=== PATIENT | male | born 1940 | race Caucasian/White ===

== ENCOUNTER → 2017-01-13 | Outpatient (CLI) | payer OTHER, BC ==
[~2017-01-13] MED LIST: ALLO300T2 PO; ATEN50TA PO; ATOR-54 PO; COEN100C7 PO; FRS/80 PO; LANS30CA63 PO; LEVO88TA PO; LOSA1TAB38 PO; MCRK20 PO; NITR0.4S UT; OMEG12006 PO; OXYC-643 PO; WARF1TAB PO; WARF2TAB PO
--- NOTE | 2017-01-13 17:00 | DIAGNOSTIC IMAGING REPORT ---
TWO VIEW CHEST CLINICAL HISTORY: Dyspnea. Lung cancer. FINDINGS: PA and lateral chest radiographs are compared to study dated 03/28/2016. A left subclavian central venous infusion port is in place. There is a moderate hiatal hernia. The cardiomediastinal silhouette is unremarkable. Heart appears enlarged and there is atherosclerotic calcification of the thoracic aorta. The pulmonary vasculature is noncongested. Emphysema is identified. Scarring and opacities at the left lung base are similar to previous. Foci of scarring the right lung are also unchanged. There is no evidence of superimposed pneumonia. Pleural fluid is noted at the left lung base. There is no pneumothorax. The skeletal structures are osteopenic. Degenerative change is seen throughout the thoracic spine. Postoperative change is suggested in the left sided ribs. IMPRESSION: 1. No acute cardiopulmonary abnormality. 2. Cardiomegaly, emphysema, and hiatal hernia. 3. Chronic changes/scarring/opacities with possible postoperative change is again seen in the left lung base. Correlation with the patient's medical/surgical history will be required. Electronically signed by: Luis Manuel Quintanilla M.D. 01/13/2017 4:59 PM Dictated Date/Time: 01/13/2017 4:56 PM
== END | disposition home or self-care (01) ==
LOC: C.RAD1850 16:46
PROVIDERS: ATTEND Nurse Practitioner Family
DX: Z79.01 Long term (current) use of anticoagulants (principal); R09.89 Other specified symptoms and signs involving the circulatory and respiratory systems; C34.90 Malignant neoplasm of unspecified part of unspecified bronchus or lung; I51.7 Cardiomegaly

== ENCOUNTER 2018-05-31 13:47 | Observation (INO) ==
[2018-05-31 15:26] LABS: Basophils # (auto) 0.03 K/uL (0-0.2); Basophils % (auto) 0.4 %; Eosinophils # (auto) 0.17 K/uL (0-0.5); Eosinophils % (auto) 2.5 %; Hematocrit (blood only) 44.3 % (42-52); Hemoglobin 15.3 g/dL (14.0-18.0); Immature Granulocytes # (auto) 0.03 K/uL (0.00-0.02); Immature Granulocytes % (auto) 0.4 %; Lymphocytes # (auto) 1.68 K/uL (1.2-3.4); Lymphocytes % (auto) 25.1 %; Mean Corpuscular Hgb Conc 34.5 g/dL (32-36); Mean Corpuscular Volume 88.8 fL (80-100); Mean Platelet Volume 9.9 fL (7.4-10.4); Monocytes % (auto) 7.5 %; Neutrophils # (auto) 4.29 K/uL (1.4-6.5); Neutrophils % (auto) 64.1 %; Platelet Count 144 K/uL (130-400); RDW Coefficient of Variation 15.2 % (11.5-14.5); RDW Standard Deviation 49.3 fL (36.4-46.3); Red Blood Count 4.99 M/uL (4.7-6.1)
[2018-05-31] MEDS ORDERED: SODIUM CHLORIDE 0.9% 1000ML 1,000 ML IV SCH (15:30)
[2018-05-31 15:38] LABS: INR 2.7 (0.9-1.1); Partial Thromboplastin Ratio 1.4; Partial Thromboplastin Time 35.9 Seconds (21.0-31.0); Prothrombin Time 26.1 Seconds (9.0-12.0)
[2018-05-31 15:39] LABS: BUN Creatinine Ratio 16.5 (10-20); Blood Urea Nitrogen 26 mg/dl (7-18); Calcium 9.4 mg/dl (8.5-10.1); Carbon Dioxide 31 mmol/L (21-32); Chloride 101 mmol/L (98-107); Creatinine Clr Calc Pharmacy 43.3 ml/min; Est GFR (African American) 48.9; Est GFR (Non-African American) 42.2; Glucose 101 mg/dl (70-99); Potassium 3.1 mmol/L (3.5-5.1); Sodium 139 mmol/L (136-145)
--- NOTE | 2018-05-31 15:43 | XRay Report ---
XR chest 1V portable CLINICAL HISTORY: stroke COMPARISON STUDY: 12/30/2017 FINDINGS: The cardiac and mediastinal contours remain stable. As a left-sided A-Port catheter present . There is a retrocardiac opacity suggestive a hiatal hernia. There is indistinctness of the left hea rt border left hemidiaphragm unchanged the prior study. There are postsurgical changes of a partial r esection of the left sixth rib.[ IMPRESSION: Postsurgical changes within the left hemithorax with chronic pleural-parenchymal changes at the left lung base. No acute findings Electronically signed by: Son Shen M.D. 05/31/2018 3:42 PM
[2018-05-31 15:44] LABS: Troponin I < 0.015 ng/ml (0-0.045)
--- NOTE | 2018-05-31 16:00 | CT Scan Report ---
CT head/brain wo con CLINICAL HISTORY: 78 years-old Male with Stroke evaluation . Acute strokelike symptoms with weakness TECHNIQUE: Multiple axial CT images of the head were obtained without contrast. A dose lowering tech nique was utilized adhering to the principles of ALARA. CT DOSE: 614.27 mGy.cm COMPARISON: CT of the sinuses 03/09/2012. FINDINGS: No acute intracranial hemorrhage, midline shift, intracranial mass, hydrocephalus, territorial ischem ia or abnormal extra-axial collection. Age-related involutional changes. Scattered ill-defined hypode nsities about the white matter suggestive of chronic microvascular ischemic changes. Senescent calcif ications of the lentiform nuclei. Cerebral vascular calcifications noted. The calvarium is intact. The paranasal sinuses, mastoid air cells, and middle ear cavities are clear . IMPRESSION: No acute intracranial abnormality. The above report was generated using voice recognition software. It may contain grammatical, syntax o r spelling errors. Electronically signed by: Vitaliy De La Paz M.D. 05/31/2018 3:59 PM
--- NOTE | 2018-05-31 17:10 | Emergency Department Note ---
Entered by Bibi Rios acting as a scribe for Luis Manuel Quintana MD History of Present Illness General Chief complaint: Stroke/CVA Symptoms Stated complaint: ACUTE BRANCH RETINLA ARTERY ACCLUSTION Time Seen by Provider: 05/31/18 15:05 Source: patient History of Present Illness Onset (ago): day(s) 2 Location: eyes Pain Consistency: + other (episode) Quality: + other (stroke) Associated symptoms: + denies other symptoms (congestion) and + other (fuzzy vision, loss of vision, intermittent neck pain); no cough and no headaches The patient is a 78 year old male who presents to the Emergency Room with complaints of an episode of a stroke occurring 2 days ago. The patient states that 2 days ago he was walking through the [place] around [place] house to [place] trees to be cut down when he started to feel like something was in his left eye. He states that he kept rubbing his eye as his vision is fuzzy, but there was nothing there. He reports as the feeling persisted, he could no longer see out of the top part of his eye as it just went moyer. He reports it was like a blind was pulled down retirement. The patient states that his symptoms didnt improve so he went to an eye doctor today who then sent him to a retina specialist. He states that they dilated his eyes and sent him to the ED because they found an acute branch retinal artery occlusion. He states that he was sent here for a stroke work up. The patient complains of a sharp pain intermittently in his neck, but notes that he has had that since he was being treated for cancer. The patient notes that he has a history of a atrial fibrillation. He reports that he was on Atenolol, but was recently switched to Metoprolol. He reports that he is on Coumadin as well. The patient denies a history of stroke , cough, congestion, and headache. Home Medications Home Medications Medication Instructions Recorded Confirmed Type allopurinol 300 mg PO QAM 05/31/18 05/31/18 History atenolol 20 mg PO HS 05/31/18 05/31/18 History coenzyme Q10 [CoQ-10] 100 mg PO QAM 05/31/18 05/31/18 History furosemide 40 mg PO BID 05/31/18 05/31/18 History lansoprazole [Prevacid] 30 mg PO DAILY PRN 05/31/18 05/31/18 History levothyroxine 100 mcg PO QAM 05/31/18 05/31/18 History losartan-hydrochlorothiazide 1 tab PO QAM 05/31/18 05/31/18 History metoprolol succinate 50 mg PO HS 05/31/18 05/31/18 History nitroglycerin 0.4 mg SUBLINGUAL UD 05/31/18 05/31/18 History omega 2-muh-tcn-fish oil [Fish Oil] 1 cap PO QAM 05/31/18 05/31/18 History potassium chloride [Klor-Con M20] 20 meq PO QAM 05/31/18 05/31/18 History warfarin 2 mg PO 3XWK 05/31/18 05/31/18 History warfarin 3 mg PO 4XWK 05/31/18 05/31/18 History Allergies Allergy/AdvReac Type Severity Reaction Status Date / Time enoxaparin Allergy Intermediate swelling Verified 05/31/18 14:52 Iodinated Contrast- Oral and Allergy Intermediate "SWELLED Verified 05/31/18 14: 52 IV Dye UP" Penicillins Allergy Unknown RASH, Verified 05/31/18 14:52 THROAT SWELLING Past Med/Surg History Medical History Atrial fibrillation CKD (chronic kidney disease) Essential hypertension Gout History of cancer of head or neck Hypothyroidism Lung cancer Skin cancer Throat cancer Surgical History H/O thyroidectomy Family History Other Family history non-contributory Social History marital status: Current Living Situation: Alone current occupational status: retired Other Information That Helps Us Care for You: No Feels Safe at Home: Yes Safety Concerns: Feels Safe At This Time Smoking Status: Never smoker Do You Dip or Chew Tobacco: No Second Hand Exposure: No Tobacco Cessation Education Requested by Patient: No Hx Alcohol Use: No Hx Substance Use: No Beliefs That Will Affect Care: None Preferred Language: Telugu Communication Ability: Effective Pan Devulcanizer Required: No Review of Systems See HPI for pertinent positives & negatives. and A total of 10 systems reviewed and were otherwise negative Physical Exam Vital Signs Vital Signs - 24 hr 05/31/18 13:50 05/31/18 15:59 05/31/18 18:12 Temperature 36.4 C L Temperature Source Oral Sepsis Recent Fever Within 48 Hours No Sepsis New/Unexplained Change in Mental Status No Sepsis Action Taken by Nursing No Action Required Pulse Rate 70 Pulse Rate [Right Finger] 71 63 Pulse Rhythm Regular Pulse Strength Normal Respiratory Rate 20 18 18 Respiratory Effort / Characteristics Non-Labored Spontaneous Respiratory Depth Normal Respiratory Pattern Regular Blood Pressure 180/100 H Blood Pressure [Right Arm] 152/79 H 146/86 H Blood Pressure Mean 126 Blood Pressure Mean [Right Arm] 103 106 Blood Pressure Position Sitting Pulse Oximetry 97 98 96 Oxygen Delivery Method Room Air Room Air Room Air GENERAL: Patient is in no acute distress. HEENT: No acute trauma, normocephalic atraumatic, mucous membranes moist, no nasal congestion, no scleral icterus. The patient has no visible vessels to the lateral aspect of the left fundus. NECK: No stridor, no adenopathy, no meningismus, trachea is midline. No bruits. LUNGS: Clear to auscultation bilaterally, no wheeze, no rhonchi, breath sounds equal. HEART: Without murmurs gallops or rubs, regular rate and rhythm. ABDOMEN: Soft, nontender, bowel sounds positive, no hernias, no peritonitis. EXTREMITIES: No cyanosis or edema, full range of motion of all the joints without pain or difficulty, no signs for acute trauma. NEUROLOGIC: Oriented x 3, no acute motor or sensory deficits, no focal weakness. No speech slur or facial droop. No pronator drift. SKIN: No rash, no jaundice, no diaphoresis. Course 1508: Past medical records reviewed. The patient was evaluated in room B12A, and a complete history and physical examination were performed. 1623: I reevaluated the patient and updated him and his family on his test results. I discussed the treatment plan with them. They verbally agree and understand. 1626: I reviewed the patient's case with Dr. Titi CORREA Hospitalist. He will evaluate the patient for further management. Consultations Consultation #1: I reviewed the patient's case with Dr. Titi CORREA Hospitalist. He will evaluate the patient for further management. Time: 16:26 Administered Medications Sodium Chloride (Nss 1000ml) 1,000 mls @ 50 mls/hr IV .Q20H MIAH Stop: 06/30/18 15:29 Last Admin: 05/31/18 16:00 Dose: 50 mls/hr Medical Decision Making Differential Diagnosis Differential diagnoses include stroke, renal artery occlusion, electrolyte imbalance, anemia, dysrhythmia, subtherapeutic INR, intracranial bleeding. Medical Records Attestation: I reviewed the patient's medical records. Home Medications Current Medication List: was personally reviewed by me Laboratory Data Attestation: I reviewed the patient's lab results. Result diagrams: 05/31/18 15:09 05/31/18 15:09 Lab Results 05/31/18 05/31/18 05/31/18 Range/Units 15: 15: 15:09 WBC 6.70 (4.8-10.8) K/uL RBC 4.99 (4.7-6.1) M/uL Hgb 15.3 (14.0-18.0) g/dL Hct 44.3 (42-52) % MCV 88.8 (80-100) fL MCH 30.7 (25-34) pg MCHC 34.5 (32-36) g/dL RDW Std Deviation 49.3 H (36.4-46.3) fL RDW Coeff of Jeremiah 15.2 H (11.5-14.5) % Plt Count 144 (130-400) K/uL MPV 9.9 (7.4-10.4) fL Immature Gran % (Auto) 0.4 % Neut % (Auto) 64.1 % Lymph % (Auto) 25.1 % [place] % (Auto) 7.5 % Eos % (Auto) 2.5 % Baso % (Auto) 0.4 % Immature Gran # (Auto) 0.03 H (0.00-0.02) K/uL Neut # (Auto) 4.29 (1.4-6.5) K/uL Lymph # (Auto) 1.68 (1.2-3.4) K/uL [place] # (Auto) 0.50 (0.11-0.59) K/uL Eos # (Auto) 0.17 (0-0.5) K/uL Baso # (Auto) 0.03 (0-0.2) K/uL PT 26.1 H (9.0-12.0) Seconds INR 2.7 H (0.9-1.1) APTT 35.9 H (21.0-31.0) Seconds PTT Ratio 1.4 Sodium 139 (136-145) mmol/L Potassium 3.1 L (3.5-5.1) mmol/L Chloride 101 (98-107) mmol/L Carbon Dioxide 31 (21-32) mmol/L Anion Gap 7.0 (3-11) BUN 26 H (7-18) mg/dl Creatinine 1.56 H (0.6-1.4) mg/dl Est Cr Clr Drug Dosing 43.3 ml/min Est GFR ( Amer) 48.9 Est GFR (Non-Af Amer) 42.2 BUN/Creatinine Ratio 16.5 (10-20) Glucose 101 H (70-99) mg/dl Calcium 9.4 (8.5-10.1) mg/dl Magnesium 2.0 (1.8-2.4) mg/dl Troponin I < 0.015 (0-0.045) ng/ml Imaging Data Radiologist's Impression: Radiology results as stated below per my review and the radiologist's interpretation: XR chest 1V portable CLINICAL HISTORY: stroke COMPARISON STUDY: 12/30/2017 FINDINGS: The cardiac and mediastinal contours remain stable. As a left-sided A- Port catheter present. There is a retrocardiac opacity suggestive a hiatal hernia. There is indistinctness of the left heart border left hemidiaphragm unchanged the prior study. There are postsurgical changes of a partial resection of the left sixth rib.[ IMPRESSION: Postsurgical changes within the left hemithorax with chronic pleural -parenchymal changes at the left lung base. No acute findings Electronically signed by: Son Shen M.D. 05/31/2018 3:[address] head/brain wo con CLINICAL HISTORY: 78 years-old Male with Stroke evaluation . Acute strokelike symptoms with weakness TECHNIQUE: Multiple axial CT images of the head were obtained without contrast. A dose lowering technique was utilized adhering to the principles of ALARA. CT DOSE: 614.27 mGy.cm COMPARISON: CT of the sinuses 03/09/2012. FINDINGS: No acute intracranial hemorrhage, midline shift, intracranial mass, hydrocephalus, territorial ischemia or abnormal extra-axial collection. Age- related involutional changes. Scattered ill-defined hypodensities about the white matter suggestive of chronic microvascular ischemic changes. Senescent calcifications of the lentiform nuclei. Cerebral vascular calcifications noted. The calvarium is intact. The paranasal sinuses, mastoid air cells, and middle ear cavities are clear. IMPRESSION: No acute intracranial abnormality. The above report was generated using voice recognition software. It may contain grammatical, syntax or spelling errors. Electronically signed by: Vitaliy De La Paz M.D. 05/31/2018 3:59 PM ECG Data Attestation: I personally reviewed and interpreted this ECG as follows: Indication: other (atrial fibrillation) Rate (beats per minute): 65 Rhythm: sinus rhythm Findings: + other (LVH) and + PVC; no ST elevation Blood Pressure Blood Pressure Findings: Elevated blood pressure Blood Pressure Disposition: further management by hospitalist MDM Narrative There is no leukocytosis. No concerning anemia. INR is elevated at 2.7 consistent with his Coumadin use. Potassium slightly low, creatinine mildly elevated. No significant electrolyte abnormality requiring emergent correction. EKG shows a sinus rhythm, no acute ischemia. Cardiac enzyme testing x1 is not consistent with acute cardiac injury. Chest x-ray does not show pneumonia or CHF. Some chronic findings were noted. Brain CT shows no acute bleed or mass-effect. Patient was given some IV saline, he has been resting comfortably. The patient presents with a partial retinal artery occlusion. He has had symptoms now for 3 days. He was sent in by ophthalmology. The patient has suffered what appears to be an embolic event to his retinal artery. He is at risk for recurrence and of course stroke. I spoke to the patient and case management. A stroke workup within the hospital is warranted. The on-call hospitalist was consulted. Impression & Plan Stroke-like symptoms, Retinal artery occlusion Discharge Plan Visit Data Chief Complaint: Stroke/CVA Symptoms Stated Complaint: ACUTE BRANCH RETINLA ARTERY ACCLUSTION ED Provider: Luis Manuel Quintana Discharge Problem: Stroke-like symptoms, Retinal artery occlusion Patient Disposition: Being Evaluated by Hospitalist Discharge Instructions Interventions: ED Discharge Assessment Last Done: 05/31/18 18:12 The scribe's documentation has been prepared under my direction and personally reviewed by me in its entirety. I confirm that the note above accurately reflects all work, treatment, procedures, and medical decision making performed by me.
--- NOTE | 2018-05-31 17:56 | History & Physical Report ---
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: - Loss of superior visual aldrich and blurring of peripheral vision aldrich - symptoms started 05/29 at 11 AM - Was evaluated by optomologist and dx with acute L branch retinal artery occlusion - Head CT unremarkable; will obtain MRI brain and MRA head/neck - Patient reports a carotid doppler in February with reported 30% carotid occlusion but not sure laterality - No jaw claudication/temporal edema/tenderness to palp to suggest temporal arteritis but will check ESR - Likely source is carotid based - INR is currently therapeutic on Coumadin and reports he has been in range for awhile without needing to change dosing - dx with paroxysmal A Fib in Feb 2018 - Has an extensive history of cancers (remission - but ongoing skin ca possible ) and history of PE/DVT - so maybe some hypercoaguable state? - ASA 81 mg now and will continue as he is not on an antiplatelet chronically - reports that he had some bleeding in the past but no source was found but believed to be GI in nature but also with his extensive cancers that could be contributing but will need to monitor - Continue home Atorvastatin 20 mg daily - reports lipid panel on 05/21 which were normal but will repeat in AM as do not have access to records - Will allow permissive HTN while awaiting further testing - Stroke workup and protocol - no focal deficits otherwise - Consult Neurology - appreciate further recommendations Present on Admission?: Yes (2) Paroxysmal atrial fibrillation: - Is on Coumadin for H/O DVT/PE and INR 2.1 - currently in NSR - Continue Coumadin and monitor INR; No longer on Atenolol but started Metoprolol - holding due to permissive HTN but will monitor for rebound tachycardia - Had an echocardiogram in February - will hold on reordering as currently will not change treatment plan Present on Admission?: Yes (3) Acquired hypothyroidism: - H/O thyroid CA and S/P thyroidectomy - Levothyroxine 100 mcg daily Present on Admission?: Yes (4) Essential hypertension: - Holding Furosemide/Metoprolol/and Losartan/HCTZ for permissive HTN and monitor Present on Admission?: Yes (5) History of DVT of lower extremity: - H/O PE as well approx 9 years ago - possibly CA induced? - Continue Coumadin and monitor INR - currently therapeutic Present on Admission?: Yes (6) CKD (chronic kidney disease) stage 3, GFR 30-59 ml/min: - Limited recent labs but would suspect stabilization but will monitor renal function Present on Admission?: Yes (7) Cancer: - H/O Lung CA, Throat CA, Thyroid CA, and Skin CA - all surgically managed Present on Admission?: No History of Present Illness Chief Complaint: L Partial Vision Loss Primary Care Provider: JONATAN Talavera Mr. Hadley is a 78 y/o male with PMHx of Extensive Faustino (surgically managed - throat, lung, thyroid, skin), Paroxysmal Atrial Fibrillation, Surgically- Induced Hypothyroidism, HTN, DVT/PE, and CKD who presents to the ED for partial L visual loss. Patient reports that he noticed loss of vision on Thursday around 11 AM. He states he was going to call his PCP but due to it being the weekend he waited. He states he was then referred to an belting cutter who diagnosed an L acute retinal artery occlusion. Pt reports loss of the superior aspect of his visual field of the L eye with some blurring of the peripheral vision of that eye. He feels that his vision is a little worse then when it started. He reports his eye doctor feels that he is trying to compensate with his R eye that has known cataracts in it. He verbalizes no other focal neurological deficits. He was diagnosed with A Fib in February and had an echocardiogram and carotid U/S performed around that time. He reports a 30% carotid occlusion but do not have access to these records to review. He is not on antiplatelet therapy. He has been on statin therapy and reports recent lipid panel that was in good limits. He denies eye pain or pain is EOM. No swelling of the temporal region/jaw claudication/sensitivities to palp of the temporal region. Allergies Allergy/AdvReac Type Severity Reaction Status Date / Time enoxaparin Allergy Intermediate swelling Verified 05/31/18 14:52 Iodinated Contrast- Oral and Allergy Intermediate "SWELLED Verified 05/31/18 14: 52 IV Dye UP" Penicillins Allergy Unknown RASH, Verified 05/31/18 14:52 THROAT SWELLING Home Medications Home Medications Medication Instructions Recorded Confirmed Type allopurinol 300 mg PO QAM 05/31/18 05/31/18 History atenolol 20 mg PO HS 05/31/18 05/31/18 History coenzyme Q10 [CoQ-10] 100 mg PO QAM 05/31/18 05/31/18 History furosemide 40 mg PO BID 05/31/18 05/31/18 History lansoprazole [Prevacid] 30 mg PO DAILY PRN 05/31/18 05/31/18 History levothyroxine 100 mcg PO QAM 05/31/18 05/31/18 History losartan-hydrochlorothiazide 1 tab PO QAM 05/31/18 05/31/18 History metoprolol succinate 50 mg PO HS 05/31/18 05/31/18 History nitroglycerin 0.4 mg SUBLINGUAL UD 05/31/18 05/31/18 History omega 5-foi-mis-fish oil [Fish Oil] 1 cap PO QAM 05/31/18 05/31/18 History potassium chloride [Klor-Con M20] 20 meq PO QAM 05/31/18 05/31/18 History warfarin 2 mg PO 3XWK 05/31/18 05/31/18 History warfarin 3 mg PO 4XWK 05/31/18 05/31/18 History Past Med/Surg History Medical History Atrial fibrillation CKD (chronic kidney disease) Essential hypertension Gout History of cancer of head or neck Hypothyroidism Lung cancer Skin cancer Throat cancer Surgical History H/O thyroidectomy Family History Other Family history non-contributory Social History marital status: Current Living Situation: Alone current occupational status: retired Other Information That Helps Us Care for You: No Feels Safe at Home: Yes Safety Concerns: Feels Safe At This Time Smoking Status: Never smoker Do You Dip or Chew Tobacco: No Second Hand Exposure: No Tobacco Cessation Education Requested by Patient: No Hx Alcohol Use: No Hx Substance Use: No Beliefs That Will Affect Care: None Preferred Language: Korean Communication Ability: Effective Mutuel Clerk Required: No Physical Exam 2 Vital Signs (Past 24 Hours): Last Vital Signs Temp 36.4 C L 05/31/18 13:50 Pulse 71 05/31/18 15:59 Resp 18 05/31/18 15:59 BP 152/79 H 05/31/18 15:59 Pulse Ox 98 05/31/18 15:59 Constitutional: well developed and well nourished; no acute distress and not ill appearing Eyes: + anicteric sclerae, PERRL (pupils are still dilated from previous exam at eye dr) and EOM intact bilaterally ENMT: Ears: no hearing impairment Throat: uvula midline; no posterior oropharynx abnormality Neck: trachea midline Respiratory: normal respiratory effort, lungs clear to auscultation Cardiovascular: RRR, no murmur, no edema Gastrointestinal (Abdomen): Inspection/Auscultation: normal bowel sounds Percussion/Palpation: abdomen soft; abdomen nontender Musculoskeletal: Head/Neck/Chest: normocephalic, head atraumatic and neck supple Skin: no rashes, warm and dry Neurologic: PERRL, EOMI, accommodation nl, no face palsy, no dysarthria moves all extremities; no focal motor deficits Speech / Cognition: normal speech Motor/Sensory: no tremor Psychiatric: A+Ox3, euthymic affect Code Status & VTE Plan Code Status FULL RESUSCITATION VTE Prophylaxis Plan VTE Prophylaxis will be ordered: Yes Supervising Physician Co-Signing Physician Notes Attending note: patient seen and examined with Lacy TAM I agree with her HPI, history, exam, ROS and A/P. I personally reviewed the labs and imaging findings. - Left eye retinal occlusion with vision loss diagnosed by retinal specialist today on dilated eye exam, recommended stroke work up patient with carotid dopplers and echo within the past year on Coumadin for afib as well as h/o VTE, INR 2.7 discussed that this would repressent small vessel disease, that he would need anti-platelet therapy will start aspirin check MRI brain, MRA head and neck consult neurology continue statin therapy follow up with retinal specialist for eye care
[2018-05-31] MEDS ORDERED: NITROGLYCERIN SL 0.4 MG/TAB TAB SL PRN (19:14)
[2018-05-31] MEDS ORDERED: LANSOPRAZOLE 30 MG SOLTAB PO PRN (19:14)
[2018-05-31] MEDS ORDERED: MAGNESIUM HYDROXIDE SUSP 30 ML UDC PO PRN (19:14)
[2018-05-31] MEDS ORDERED: ACETAMINOPHEN 325 MG TAB PO PRN (19:14)
[2018-05-31] MEDS ORDERED: ALUMINUM/MAGNESIUM SUSP 30 ML UDC PO PRN (19:14)
[2018-05-31] MEDS ORDERED: ONDANSETRON INJ 2 MG/ML 2 ML VIAL IV PRN (19:14)
[2018-05-31] MEDS ORDERED: POLYETHYLENE (MIRALAX) 17 GM PACK PO PRN (19:14)
[2018-05-31] MEDS ORDERED: PHARMACIST DISCHARGE MED REC CONSULT PRN (19:14)
[2018-05-31] MEDS ORDERED: ASPIRIN 81 MG ECTAB PO STA (19:36)
[2018-05-31] MEDS ORDERED: WARFARIN SOD 3 MG TAB PO SCH (20:00)
[2018-05-31] MEDS ORDERED: ATORVASTATIN 20 MG TAB PO SCH (21:00)
[2018-05-31] MEDS ORDERED: GADOBUTROL 65ML VIAL IV PRN (21:31)
--- NOTE | 2018-05-31 21:41 | Magnetic Resonance Report ---
MR angio neck wo/w con CLINICAL HISTORY: Stroke COMPARISON STUDY: No previous studies for comparison. TECHNIQUE: Utilizing a 1.5 Gisela magnet, unenhanced and contrast-enhanced MRA of the neck was perform ed. Intravenous injection of 9 cc of Gadavist was uneventful. FINDINGS: The bilateral common carotid and internal carotid arteries are patent. There is no stenosis . The bilateral vertebral arteries are also patent. No evidence for dissection is noted within the ma usama vessels of the neck. The MRA of the head and MRI of the brain will be reported separately. IMPRESSION: Unremarkable MRA of the neck. Electronically signed by: Marlon Julian M.D. 05/31/2018 9:40 PM
--- NOTE | 2018-05-31 22:01 | Magnetic Resonance Report ---
MRI OF THE BRAIN WITHOUT AND WITH IV CONTRAST CLINICAL HISTORY: Stroke COMPARISON STUDY: Head CT May 31, 2018. TECHNIQUE: Utilizing a 1.5 Gisela magnet and dedicated coil, multiplanar, multiecho imaging of the br ain was performed pre and postcontrast administration. IV administration of 9 mL of Gadavist contras t was uneventful. Thin cut T1 post contrast imaging was performed. FINDINGS: There are no foci of restricted diffusion to suggest acute infarct. No acute intracranial h emorrhage, midline shift or mass effect is present. Brain volume is normal for age. Ventricular syste m is unremarkable. The basilar cisterns are patent. There are no extra-axial collections. Flow-voids for the major intracranial vessels are present. White matter T2 hyperintense foci suggest moderate sm all vessel disease. No intracranial mass or pathologic enhancement is identified. Calvarial signal is maintained. Orbits are grossly unremarkable. IMPRESSION: 1. No acute intracranial findings. 2. No intracranial mass or pathologic enhancement. 3. Moderate small vessel disease. Electronically signed by: Marlon Julian M.D. 05/31/2018 9:59 PM
--- NOTE | 2018-05-31 22:01 | Magnetic Resonance Report ---
MRA OF THE INTRACRANIAL CIRCULATION WITHOUT CONTRAST CLINICAL HISTORY: Stroke COMPARISON STUDY: Head CT May 31, 2018. TECHNIQUE: Utilizing a 1.5 Gisela magnet and 3-D [id number] technique, unenhanced MRA of the intra cranial circulation was obtained. FINDINGS: The bilateral M1, M2, A1 and A2 segments are patent. No intracranial aneurysm, abrupt vesse l cut off or dissection is noted. Posterior circulation is also intact. Please note that the MRI of t he brain will be reported separately. Anterior communicating artery is noted. IMPRESSION: Unremarkable MRA of the head. Electronically signed by: Marlon Julian M.D. 05/31/2018 10:00 PM
[2018-06-01 06:19] LABS: Estimated Average Glucose 131 mg/dl; Hemoglobin A1C 6.2 % (4.5-5.6)
[2018-06-01 06:21] LABS: Hematocrit (blood only) 41.5 % (42-52); Hemoglobin 13.8 g/dL (14.0-18.0); Mean Corpuscular Hgb Conc 33.3 g/dL (32-36); Mean Corpuscular Volume 88.9 fL (80-100); Mean Platelet Volume 9.8 fL (7.4-10.4); Platelet Count 132 K/uL (130-400); RDW Coefficient of Variation 15.3 % (11.5-14.5); RDW Standard Deviation 49.5 fL (36.4-46.3); Red Blood Count 4.67 M/uL (4.7-6.1); White Blood Count 5.48 K/uL (4.8-10.8)
[2018-06-01] MEDS ORDERED: LEVOTHYROXINE SODIUM 100 MCG TABLET PO SCH (06:30)
[2018-06-01 06:50] LABS: BUN Creatinine Ratio 16.3 (10-20); Calcium 8.5 mg/dl (8.5-10.1); Creatinine Clr Calc Pharmacy 46.6 ml/min; Est GFR (African American) 55.8; Est GFR (Non-African American) 48.1; Potassium 3.3 mmol/L (3.5-5.1)
[2018-06-01 07:00] LABS: INR 2.5 (0.9-1.1); Prothrombin Time 23.9 Seconds (9.0-12.0)
[2018-06-01] MEDS ORDERED: ASPIRIN 81 MG ECTAB PO SCH (09:00)
[2018-06-01] MEDS ORDERED: OMEGA-3 (PURIFIED FISH OIL) 1 GM CAP PO SCH (09:00)
[2018-06-01] MEDS ORDERED: POTASSIUM CHLORIDE 20 MEQ TABCR PO SCH (09:00)
[2018-06-01] MEDS ORDERED: ALLOPURINOL 300 MG TAB PO SCH (09:00)
[2018-06-01] MEDS ORDERED: LOSARTAN POTASSIUM 50 MG TAB PO SCH (10:45)
[2018-06-01] MEDS ORDERED: LOSARTAN HYDROCHLOROTHIAZIDE PO SCH (10:45)
[2018-06-01] MEDS ORDERED: FUROSEMIDE 40 MG TAB PO SCH (10:45)
--- NOTE | 2018-06-01 10:58 | Neurology Consultation ---
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 This is likely small vessel ischemic disease to the eye. I cannot entirely exclude an embolus but he has been anticoagulated properly on warfarin. On examination the patient has no other focal neurologic findings, meningeal signs, or encephalopathy. Risk factors for small vessel ischemia include his longstanding history of hypertension (not adequately controlled on admission), dyslipidemia, and possible early diabetes (hemoglobin A1c of 6.2). (2) Chronic cerebral ischemia: Patient has moderate chronic small vessel ischemia seen on MRI which is likely due to his longstanding history of hypertension. He has had no new brain stroke. (3) Paroxysmal atrial fibrillation: Patient has paroxysmal atrial fibrillation on warfarin. He is adequately anticoagulated and I do not believe his current event represents embolus ( although, obviously, I cannot entirely exclude this). Recommendations: 1. Agree with 81 milligram aspirin tablet daily for small vessel ischemia prevention. 2. Control blood pressure keeping mean arterial pressure between 95 and 100. 3. Consider statin for dyslipidemia and he would theoretically be a high-dose statin candidate. 4. Continue warfarin 5. There is no need for any additional neurologic testing at this time. Please contact me if I can be of further assistance on this case, otherwise he can be seen as an outpatient for follow-up by primary care and Ophthalmology. Overall, I spent a total of 90 minutes on this case including review of records , review of MRI films, direct evaluation of the patient at bedside, and discussion of the case with the patient at bedside, clinical staff, and Lacy Resendiz PA-C. History of Present Illness Reason for Consultation: A 78-year-old, who was asked to see the request of Dr. Mancia, for neurologic evaluation regarding visual loss/stroke Requesting Physician: Dr. Mancia Attending Physician: Paulino Mancia, DO History of Present Illness This patient has a history of hypertension for over 30 years and a more recent diagnosis of atrial fibrillation in February of 2018 now on Coumadin. He has no history of previous stroke. He has a history of lung cancer treated by surgery 20 years ago in [place], bilaterally. He also has a history of throat cancer post chemo and radiation. He has had chronic neck pain since this. He has had a history of DVT if pulmonary emboli 10 12 years ago but has never been diagnosed with clotting disorder. He has a history of some low back pain and left lower extremity dysesthesias. He has been stable neurologically otherwise. On May 29, the [place], when after about an hour of doing this around 11 a.m., the patient had the sudden onset of some visual change in the superior part of his left eye. He thought it was something in his eye but after rubbing it did not go away. The reports the vision that were somewhat fuzzy but he was missing the top half of his vision. He was unchanged and he had no headache or pain. He had no weakness, numbness, or balance problems. He had no speech or mentation issues. On May 31 he saw an physician practice manager to send him to the retinal specialist, who diagnosed a left acute retinal artery branch occlusion. He was sent to our emergency room. He arrived May 31 at 1350 with a temperature 36.4, pulse 70 and regular, respiratory rate 20 and regular. And blood pressure 180/100. pulse ox of 97 percent. He had no focal neurologic deficits and had decreased visible vessels in the left lateral fundus. CBC was unremarkable and sed rate was 20. INR was 2.7 Chem profile was unremarkable except for mildly elevated BUN and creatinine. Fasting lipid profile showed triglycerides elevated at 194 but cholesterol was 151. Hemoglobin A1c was 6.2. CT scan of the head was unremarkable. MRI of the brain showed no acute stroke. There was moderate amount of old small vessel ischemic changes diffusely in the white matter and there was mild to moderate atrophy in general. MR angiography of the head neck were unremarkable with no significant vessel stenoses. Today he is stable with no change in his vision. He has no other symptoms. Allergies Allergy/AdvReac Type Severity Reaction Status Date / Time enoxaparin Allergy Intermediate swelling Verified 05/31/18 14:52 Iodinated Contrast- Oral and Allergy Intermediate "SWELLED Verified 05/31/18 14: 52 IV Dye UP" Penicillins Allergy Unknown RASH, Verified 05/31/18 14:52 THROAT SWELLING Home Medications Home Medications Medication Instructions Recorded Confirmed Type allopurinol 300 mg PO QAM 05/31/18 05/31/18 History coenzyme Q10 [CoQ-10] 100 mg PO QAM 05/31/18 05/31/18 History furosemide 40 mg PO BID 05/31/18 05/31/18 History lansoprazole [Prevacid] 30 mg PO DAILY PRN 05/31/18 05/31/18 History levothyroxine 100 mcg PO QAM 05/31/18 05/31/18 History losartan-hydrochlorothiazide 1 tab PO QAM 05/31/18 05/31/18 History metoprolol succinate 50 mg PO HS 05/31/18 05/31/18 History nitroglycerin 0.4 mg SUBLINGUAL UD 05/31/18 05/31/18 History omega 6-noc-bef-fish oil [Fish Oil] 1 cap PO QAM 05/31/18 05/31/18 History potassium chloride [Klor-Con M20] 20 meq PO QAM 05/31/18 05/31/18 History warfarin 2 mg PO 3XWK 05/31/18 05/31/18 History warfarin 3 mg PO 4XWK 05/31/18 05/31/18 History atorvastatin 20 mg PO DAILY 06/01/18 06/01/18 History Patient History Medical History Atrial fibrillation CKD (chronic kidney disease) Essential hypertension Gout History of cancer of head or neck Hypothyroidism Lung cancer Skin cancer Throat cancer Surgical History H/O thyroidectomy History of appendectomy History of repair of hiatal hernia Family History Mother , in early age from MVA No problems noted. Father , age 73 with silicosis No problems noted. 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 Other Information That Helps Us Care for You: No Feels Safe at Home: Yes Safety Concerns: Feels Safe At This Time Smoking Status: Never smoker Do You Dip or Chew Tobacco: No Second Hand Exposure: No Tobacco Cessation Education Requested by Patient: No Hx Alcohol Use: Yes (Occasional use of alcohol stopping about 40 years ago.) Hx Substance Use: No Beliefs That Will Affect Care: None Preferred Language: Estonian Communication Ability: Effective Benefits Administrator Required: No Review of Systems Constitutional: no fever and no fatigue Eyes: + blind spots and + worsening vision; no diplopia and no eye pain Ear, Nose, Mouth, Throat: + hearing loss; no ear pain, no tinnitus and no dysphagia Respiratory: no cough and no dyspnea Cardiovascular: no chest pain, no dyspnea and no palpitations Gastrointestinal: no abdominal pain, no nausea and no vomiting Genitourinary (Male): + urinary frequency; no dysuria and no urinary incontinence Musculoskeletal: + neck pain; no back pain, no radicular pain, no myalgia, no muscle weakness and no muscle atrophy Integumentary: no rash and no lesions Neurologic: no gait abnormality, no falls, no localized weakness, no generalized weakness, no tingling, no numbness, no tremor(s), no abnormal movements, no dizziness, no headache(s), no abnormal speech, no behavioral changes, no confusion and no memory loss Psychiatric: no depression, no abnormal sleep pattern, no anxiety, no difficulty concentrating, no confusion and no hallucinations Endocrine: no fatigue and no flushing Hematologic / Lymphatic: no easy bleeding and no easy bruising Allergy / Immunological: no urticaria Physical Exam 2 Vital Signs (Past 24 Hours): Last Vital Signs Temp 36.5 C 06/01/18 07:40 Pulse 67 06/01/18 07:40 Resp 18 06/01/18 07:40 BP 147/87 H 06/01/18 07:40 Pulse Ox 94 06/01/18 07:40 Physical Exam: The patient is left-handed. The patient is awake, alert, and attentive. Speech is normal without any aphasia or dysarthria. Mentation and thought processes are intact, with full orientation and normal fund of knowledge. Attention and concentration are normal. Mood and affect are normal and appropriate. General appearance and grooming are normal. Short and long-term memory are intact. The discs are sharp with positive venous pulsations bilaterally. There are no exudates, hemorrhages, or blood vessel changes seen. Pupils are 4 mm bilaterally and reactive to light. Extraocular eye muscles are intact without nystagmus. He has decreased vision in the left eye superiorly. The right eye is normal. There are no deficits to sensation in the face in all 3 distributions of the fifth cranial nerve bilaterally. Corneal reflexes are positive bilaterally. Facial strength and symmetry was normal bilaterally. Hearing seems intact grossly to voice and finger rub bilaterally. Palate moves well without asymmetry. There is normal sternocleidomastoid and trapezius (shoulder shrug) strength bilaterally. Tongue is midline with good strength bilaterally. Neck has a full range of motion without discomfort. There are no cervical bruits bilaterally. There are no cranial or ocular bruits. Heart is without murmur. There is a regular rhythm and rate. Cervical, thoracic, and lumbar spine are nontender to palpation. Gait is narrow based, with good arm swing, turns, and stance. Balance is normal eyes open or closed. The patient can tandem walk with some difficulty. The patient can heal and toe walk some. With outstretched arms there is no drift. There are no resting, postural, or action tremors. There is no ataxia with finger to nose testing. There is good facility in the hands. No other abnormal involuntary movements are noted. Motor strength is 5/5 diffusely in the arms bilaterally including deltoids, biceps, triceps, brachioradialis, wrist flexors and extensors, truss designer, and intrinsic hand muscles. Motor strength is 5/5 diffusely in the legs bilaterally including hip flexors, quadriceps, hamstrings, gastrocnemius, tibialis anterior , tibialis posterior, and Peroneii muscles bilaterally. Toe extensors are normal and there is good bulk in the extensor digitorum brevis muscles bilaterally. The limbs have good tone without rigidity or spasticity. There is no atrophy noted in the muscles. Muscle bulk is normal, there is no tenderness to palpation , no myotonia to percussion, and no fasciculations seen. Sensory examination is intact to touch and pin throughout all 4 limbs diffusely. Vibratory and position sense testing is normal bilaterally as well. There is normal sensation to temperature. Reflexes are 1/4 in the biceps, triceps, brachioradialis, and quadriceps tendons bilaterally. Achilles tendon reflexes are absent bilaterally. Toes are downgoing with plantar stimulation bilaterally. Peripheral pulses are present and of normal quality distally in all 4 limbs. There is no peripheral edema noted in the limbs. Results & Data Diagnostic Findings MRI OF THE BRAIN WITHOUT AND WITH IV CONTRAST CLINICAL HISTORY: Stroke COMPARISON STUDY: Head CT May 31, 2018. TECHNIQUE: Utilizing a 1.5 Gisela magnet and dedicated coil, multiplanar, multiecho imaging of the brain was performed pre and postcontrast administration. IV administration of 9 mL of Gadavist contrast was uneventful. Thin cut T1 post contrast imaging was performed. FINDINGS: There are no foci of restricted diffusion to suggest acute infarct. No acute intracranial hemorrhage, midline shift or mass effect is present. Brain volume is normal for age. Ventricular system is unremarkable. The basilar cisterns are patent. There are no extra-axial collections. Flow-voids for the major intracranial vessels are present. White matter T2 hyperintense foci suggest moderate small vessel disease. No intracranial mass or pathologic enhancement is identified. Calvarial signal is maintained. Orbits are grossly unremarkable. IMPRESSION: 1. No acute intracranial findings. 2. No intracranial mass or pathologic enhancement. 3. Moderate small vessel disease. Electronically signed by: Marlon Julian M.D. 05/31/2018 9:59 PM
[2018-06-01] MEDS ORDERED: hydroCHLOROthiazide 25 MG TAB PO SCH (11:00)
[2018-06-01 11:58] VITALS: BP 145/79; PULSE 66; TEMP 97.3; O2SAT 95
[2018-06-01] MEDS ORDERED: STROKE PATIENT DISCHARGE STA (12:00)
--- NOTE | 2018-06-01 13:23 | Pharmacy Report ---
Pharmacist Stroke Counseling - Date of Service June 01, 2018 - Scope: Pharmacy has been consulted to provide medication discharge counseling for this patient admitted with retinal artery occlusion as per the Pharmacist Discharge Counseling for Stroke Patients Protocol. - Medications on Discharge: Home Medications Medication Instructions Recorded Confirmed allopurinol 300 mg PO QAM 05/31/18 05/31/18 coenzyme Q10 [CoQ-10] 100 mg PO QAM 05/31/18 05/31/18 furosemide 40 mg PO BID 05/31/18 05/31/18 lansoprazole [Prevacid] 30 mg PO DAILY PRN 05/31/18 05/31/18 levothyroxine 100 mcg PO QAM 05/31/18 05/31/18 losartan-hydrochlorothiazide 1 tab PO QAM 05/31/18 05/31/18 metoprolol succinate 50 mg PO HS 05/31/18 05/31/18 nitroglycerin 0.4 mg SUBLINGUAL UD 05/31/18 05/31/18 omega 2-yvw-ocp-fish oil [Fish Oil] 1 cap PO QAM 05/31/18 05/31/18 potassium chloride 20 meq PO QAM 05/31/18 05/31/18 warfarin 2 mg PO 3XWK 05/31/18 05/31/18 warfarin 3 mg PO 4XWK 05/31/18 05/31/18 New Rx's Medication Instructions Recorded aspirin [Ecotrin Low Strength] 81 mg PO QAM 30 Days #30 tab 06/01/18 atorvastatin 40 mg PO DAILY 30 Days #60 tab 06/01/18 - Action: The above medications, specifically ones for stroke treatment/prophylaxis, have been reviewed in detail with the patient prior to discharge. This includes indication, common adverse reactions, drug interactions, and medication administration. Medication counseling has been employed using the teach-back method to ensure understanding. - Outcome: The patient have demonstrated understanding of the medications. Please note, they are aware that the pharmacist will call them within 72 hours post-discharge to confirm that the appropriate medications are being taken and answer any further medication related questions the patient might have at that time. Contact information Individual to be contacted: self Relationship to patient (if applicable): N/A Phone number: [phone] Best time to call: anytime Additional comments: Patient denies any problems with Lipitor. Aware of increased bruising and bleeding. Thank you for allowing pharmacy to be involved in the care of this patient. Please call [phone] or [phone] with any additional questions
--- NOTE | 2018-06-01 19:19 | Discharge Summary ---
Date of Service June 01, 2018 Admission HPI Per Admitting Provider Mr. Hadley is a 78 y/o male with PMHx of Extensive Faustino (surgically managed - throat, lung, thyroid, skin), Paroxysmal Atrial Fibrillation, Surgically- Induced Hypothyroidism, HTN, DVT/PE, and CKD who presents to the ED for partial L visual loss. Patient reports that he noticed loss of vision on Thursday around 11 AM. He states he was going to call his PCP but due to it being the weekend he waited. He states he was then referred to an rod filler who diagnosed an L acute retinal artery occlusion. Pt reports loss of the superior aspect of his visual field of the L eye with some blurring of the peripheral vision of that eye. He feels that his vision is a little worse then when it started. He reports his eye doctor feels that he is trying to compensate with his R eye that has known cataracts in it. He verbalizes no other focal neurological deficits. He was diagnosed with A Fib in February and had an echocardiogram and carotid U/S performed around that time. He reports a 30% carotid occlusion but do not have access to these records to review. He is not on antiplatelet therapy. He has been on statin therapy and reports recent lipid panel that was in good limits. He denies eye pain or pain is EOM. No swelling of the temporal region/jaw claudication/sensitivities to palp of the temporal region. Principal Diagnosis Acute L Branch Retinal Artery Occlusion Discharge Exam Constitutional well developed and well nourished; no acute distress and not ill appearing Eyes + anicteric sclerae, PERRL and EOM intact bilaterally ENMT Ears: no hearing impairment Throat: uvula midline; no posterior oropharynx abnormality Neck trachea midline Respiratory normal respiratory effort, lungs clear to auscultation Cardiovascular RRR, no murmur, no edema Gastrointestinal (Abdomen) Inspection/Auscultation: normal bowel sounds Percussion/Palpation: abdomen soft; abdomen nontender Musculoskeletal Head/Neck/Chest: normocephalic, head atraumatic and neck supple Skin no rashes, warm and dry Neurologic PERRL, EOMI, accommodation nl, no face palsy, no dysarthria moves all extremities; no focal motor deficits Speech / Cognition: normal speech Motor/Sensory: no tremor Psychiatric A+Ox3, euthymic affect Discharge Data Allergies Allergy/AdvReac Type Severity Reaction Status Date / Time enoxaparin Allergy Intermediate swelling Verified 05/31/18 14:52 Iodinated Contrast- Oral and Allergy Intermediate "SWELLED Verified 05/31/18 14: 52 IV Dye UP" Penicillins Allergy Unknown RASH, Verified 05/31/18 14:52 THROAT SWELLING Consultations 05/31/18 16:20 ED Decision to Admit Stat 05/31/18 19:14 Consult Case Management - Discharge Planning Routine Consult Neurology Routine Ordered Studies MR angio neck wo/w con FINDINGS: The bilateral common carotid and internal carotid arteries are patent. There is no stenosis. The bilateral vertebral arteries are also patent. No evidence for dissection is noted within the major vessels of the neck. The MRA of the head and MRI of the brain will be reported separately. IMPRESSION: Unremarkable MRA of the neck. MRA OF THE INTRACRANIAL CIRCULATION WITHOUT CONTRAST FINDINGS: The bilateral M1, M2, A1 and A2 segments are patent. No intracranial aneurysm, abrupt vessel cut off or dissection is noted. Posterior circulation is also intact. Please note that the MRI of the brain will be reported separately. Anterior communicating artery is noted. IMPRESSION: Unremarkable MRA of the head. MRI OF THE BRAIN WITHOUT AND WITH IV CONTRAST FINDINGS: There are no foci of restricted diffusion to suggest acute infarct. No acute intracranial hemorrhage, midline shift or mass effect is present. Brain volume is normal for age. Ventricular system is unremarkable. The basilar cisterns are patent. There are no extra-axial collections. Flow-voids for the major intracranial vessels are present. White matter T2 hyperintense foci suggest moderate small vessel disease. No intracranial mass or pathologic enhancement is identified. Calvarial signal is maintained. Orbits are grossly unremarkable. IMPRESSION: 1. No acute intracranial findings. 2. No intracranial mass or pathologic enhancement. 3. Moderate small vessel disease. 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: - Loss of superior visual aldrich and blurring of peripheral vision aldrich - symptoms started 05/29 at 11 AM - Was evaluated by opthamologist and dx with acute L branch retinal artery occlusion - Head CT unremarkable; MRA Neck/Head unremarkable with MRI only with moderate small vessel changes evident - Patient reports a carotid doppler in February with reported 30% carotid occlusion but not sure laterality and do not have this report to review - No jaw claudication/temporal edema/tenderness to palp to suggest temporal arteritis and ESR just slightly elevated at 20 - Maybe carotid could be source even though MRA not revealing, possibly small vessel disease, cannot completely R/O embolic but he is therapeutic on Coumadin - reports he has been in range for awhile without needing to change dosing - dx with paroxysmal A Fib in Feb 2018 - Has an extensive history of cancers (remission - but ongoing skin ca possibly? ) and history of PE/DVT - so maybe some hypercoagulable state? - Start ASA 81 mg daily as he was not on an antiplatelet chronically - reports that he had some bleeding in the past but no source was found but believed to be GI in nature but also with his extensive cancers that could be contributing to anemia at that time but will need to monitor - Did increase Atorvastatin to 40 mg daily and may be able to increase further. Triglycerides are elevated on lipid panel - Consulted Neurology - agree with ASA therapy and BP control/routine monitoring of A1c as it is at 6.2 (2) Paroxysmal atrial fibrillation: - Is on Coumadin for H/O DVT/PE and INR 2.5 - currently in NSR - Continue Coumadin; No longer on Atenolol but started Metoprolol - Had an echocardiogram in February - will hold on reordering as currently will not change treatment plan (3) Acquired hypothyroidism: - H/O thyroid CA and S/P thyroidectomy - Levothyroxine 100 mcg daily (4) Essential hypertension: Furosemide/Metoprolol/and Losartan/HCTZ continued (5) History of DVT of lower extremity: - H/O PE as well approx 9 years ago - possibly CA induced? - Continue Coumadin and monitor INR - currently therapeutic (6) CKD (chronic kidney disease) stage 3, GFR 30-59 ml/min: - Limited recent labs but would suspect stabilization; no urine output issue (7) Cancer: - H/O Lung CA, Throat CA, Thyroid CA, and Skin CA - all surgically managed Total Time Total Time Spent Total Time Spent (In Minutes): Greater than 30 minutes Discharge Plan Discharge Items Patient Disposition: Home - Self-Care Reason For Visit: L RETINAL OCC/CVA WORKUP Discharge Diagnosis: Left Retinal Artery Occlusion Condition: Good Discharge Goals: Decrease discomfort, Improve disease control and Increase independence Activity: Resume your previous activity Non-emergency contact: Primary Care Provider and Grip Call non-emergency contact if: you have any medication questions, your symptoms worsen and your pain is unusual for you Follow-up/Referrals: Glory Samuels CRNP [Primary Care Provider] - 06/07/18 3:10 pm (Please, follow up with Glory CHEUNG on ThursdayJune 07 at 3:10 pm. *If you need to change this appointment, call the office at [phone].) Diet: Heart Healthy Add Provider Instructions: Retinal Artery Occlusion of the Left Eye: - We do not know how much vision will be recovered or if this will be permanent. It will be important to have close follow-up with your eye doctor and would recommend to avoid driving until further evaluated by the eye doctor - Thankfully there is no new stroke on your MRI. Your MRI does show some small vessel changes which are rather common with age due to cholesterol issues and high blood pressure. The preventative measures for this is cholesterol control, blood pressure control, and aspirin therapy - Your MRI of the neck and head vessels do not show occlusions or blockages. Can continue to monitor with your heart doctor as the carotid ultrasound suggested some blockage but again the treatment will be aspirin therapy - Recommend to start aspirin 81 mg or what we consider a baby aspirin. It will be important to monitor for increased bruising and black colored stool as blood thinners and aspirin can increase risk of bleeding. - Would recommend to avoid using ibuprofen, advil, motrin, naproxyn while on both aspirin and Coumadin as these medications are similar to aspirin and can increase bleeding even further - Continue your atorvastatin but did increase to 40 mg daily to get better cholesterol coverage and vessel lining protection. Please discuss with your doctor if you have muscle aches and pains on this medication. Atrial Fibrillation/History of Blood Clots: - While here, you did not have any episodes of atrial fibrillation. Would recommend to continue your blood thinner and medications as previously prescribed. Your INR (Coumadin level) is 2.5 Home Medications: - Continue your home medications as previously prescribed. We did not make adjustments to these Prescriptions: New aspirin [Ecotrin Low Strength] 81 mg Tablet,Delayed Release (Dr/Ec) 81 mg PO QAM 30 Days Qty: 30 RF: 0 atorvastatin 20 mg Tablet 40 mg PO DAILY 30 Days Qty: 60 RF: 0 Continue metoprolol succinate 50 mg tablet extended release 24 hr 50 mg PO HS RF: 0 warfarin 3 mg tablet 3 mg PO 4XWK RF: 0 levothyroxine 100 mcg tablet 100 mcg PO QAM RF: 0 potassium chloride 20 mEq tablet,ER particles/crystals 20 meq PO QAM RF: 0 furosemide 80 mg tablet 40 mg PO BID RF: 0 lansoprazole [Prevacid] 30 mg Capsule,Delayed Release(Dr/Ec) 30 mg PO DAILY PRN (Reason: Indigestion) RF: 0 warfarin 2 mg tablet 2 mg PO 3XWK RF: 0 nitroglycerin 0.4 mg tablet, sublingual 0.4 mg Sublingual UD RF: 0 allopurinol 300 mg tablet 300 mg PO QAM RF: 0 coenzyme Q10 [CoQ-10] 100 mg Capsule 100 mg PO QAM RF: 0 losartan-hydrochlorothiazide 100-12.5 mg tablet 1 tab PO QAM RF: 0 omega 0-zww-wzl-fish oil [Fish Oil] 1,000 mg (120 mg-180 mg) Capsule 1 cap PO QAM RF: 0 Stand-Alone Forms: [facility]/Other Patient Handouts: Stroke Sx, Stroke Risk Factors Discharge Orders: Discharge Order (Routine); Ordered 06/01/18 Ordered By: Lacy Resendiz Admission Data Admit Date/Time: 05/31/18 17:50 Attending Provider: Paulino Mancia Admit Provider: Paulino Mancia Primary Care Provider: Glory Samuels Other Providers: Shayne Hsieh III ; Paulino Mancia Service: Telemetry Other Interventions: Discharge Summary Assessment (RN) Last Done: 06/01/18 12:57 Pending Studies at Discharge: No DC Date/Time DO NOT enter until pt leaves facility: 06/01/18 13:20
[2018-06-02] MEDS ORDERED: WARFARIN SOD 2 MG TAB PO SCH (16:00)
--- NOTE | 2018-06-04 12:45 | Pharmacy Report ---
Pharmacist Post D/C Phone Note - Phone Note: Date of phone call: June 04, 2018. Attempted to contact this patient, however there was no answer ([phone]), but I did leave a message requesting a call back. Thank you for allowing us to be involved in the care of this patient. - Home Medications: Home Medications Medication Instructions Recorded Confirmed allopurinol 300 mg PO QAM 05/31/18 05/31/18 coenzyme Q10 [CoQ-10] 100 mg PO QAM 05/31/18 05/31/18 furosemide 40 mg PO BID 05/31/18 05/31/18 lansoprazole [Prevacid] 30 mg PO DAILY PRN 05/31/18 05/31/18 levothyroxine 100 mcg PO QAM 05/31/18 05/31/18 losartan-hydrochlorothiazide 1 tab PO QAM 05/31/18 05/31/18 metoprolol succinate 50 mg PO HS 05/31/18 05/31/18 nitroglycerin 0.4 mg SUBLINGUAL UD 05/31/18 05/31/18 omega 0-gbr-rod-fish oil [Fish Oil] 1 cap PO QAM 05/31/18 05/31/18 potassium chloride 20 meq PO QAM 05/31/18 05/31/18 warfarin 2 mg PO 3XWK 05/31/18 05/31/18 warfarin 3 mg PO 4XWK 05/31/18 05/31/18 New Rx's Medication Instructions Recorded aspirin [Ecotrin Low Strength] 81 mg PO QAM 30 Days #30 tab 06/01/18 atorvastatin 40 mg PO DAILY 30 Days #60 tab 06/01/18
--- NOTE | 2018-06-05 13:32 | Pharmacy Report ---
Pharmacist Post D/C Phone Note - Phone Note: Date of phone call: June 05, 2018. Individual with whom pharmacist spoke to: TYREE COOPER The following questions were reviewed during the phone call with responses listed below each: Can you tell me the medications that you are currently taking as well as when and how you take each medication? -See Table Below When have you missed any doses of your medications? - none reported What side effects are you having from your medications, specifically, the new medications you were started on? - no - patient states he is feeling much better What questions do you have about your medications? - stated that his atorvastatin was 20 mg tablets and asked if he should take his dose (40 mg - 2 tablets) at once or twice daily. Told him to take 2 tablets of the 20 mg all at one time for the dose What problems are you having obtaining your medications? - none reported When is your next appointment with your primary care doctor? - Thursday he has appt with PCP Additional comments: - Patient returned phone call left of message yesterday for post discharge follow up. Patient very familiar with all of his medications. Reviewed each one together. Patient says he is doing well since discharge and reports no concerns. Has follow up appt with PCP on thursday - recommended that he bring an updated medication list with him to his visit. As per the Pharmacist Discharge Counseling for Stroke Patients Protocol, this phone call has been completed within 72 hours of discharge. Thank you for allowing us to be involved in the care of this patient. - Home Medications: Home Medications Medication Instructions Recorded Confirmed allopurinol 300 mg PO QAM 05/31/18 05/31/18 coenzyme Q10 [CoQ-10] 100 mg PO QAM 05/31/18 05/31/18 furosemide 40 mg PO BID 05/31/18 05/31/18 lansoprazole [Prevacid] 30 mg PO DAILY PRN 05/31/18 05/31/18 levothyroxine 100 mcg PO QAM 05/31/18 05/31/18 losartan-hydrochlorothiazide 1 tab PO QAM 05/31/18 05/31/18 metoprolol succinate 50 mg PO HS 05/31/18 05/31/18 nitroglycerin 0.4 mg SUBLINGUAL UD 05/31/18 05/31/18 omega 9-zwn-nzz-fish oil [Fish Oil] 1 cap PO QAM 05/31/18 05/31/18 potassium chloride 20 meq PO QAM 05/31/18 05/31/18 warfarin 2 mg PO 3XWK 05/31/18 05/31/18 warfarin 3 mg PO 4XWK 05/31/18 05/31/18 New Rx's Medication Instructions Recorded aspirin [Ecotrin Low Strength] 81 mg PO QAM 30 Days #30 tab 06/01/18 atorvastatin 40 mg PO DAILY 30 Days #60 tab 06/01/18
== END 2018-06-01 13:20 | disposition home or self-care (01) ==
LOC: ED 13:47 → 2S 13:47

== ENCOUNTER 2022-08-15 17:16 | Inpatient (IN) ==
--- NOTE | 2022-08-15 17:22 | ED Triage Note ---
Date of Service August 15, 2022 History of Present Illness This patient was briefly evaluated while in triage. An abbreviated physical exam was performed. This patient is a 82-year-old Male who presents to the ED for evaluation of rapid heart rate, chills and diarrhea. Symptoms started 3 days ago. He saw his PCP today and they sent him here. Physical Exam VITALS: Vitals are noted on the nurse's note and reviewed by myself. GENERAL: This is an 82-year-old male, in no acute distress, sitting in triage chair. SKIN: The skin was without rashes. HEART: Tachycardic, regular rhythm without murmurs gallops or rubs. LUNGS: Clear to auscultation bilaterally without wheezes, rales or rhonchi. ABDOMEN: Positive bowel sounds x 4. Soft, nontender to palpation. NEURO: Patient was alert and oriented to person place and time. Initial orders for labs and / or imaging were placed and patient was placed in the waiting area until a bed is available. Please see further documentation for the full ED course.
[2022-08-15 18:50] LABS: Albumin Globulin Ratio 1.2 (0.9-2); Albumin Level 3.8 gm/dl (3.4-5.0); Bilirubin,Total 1.7 mg/dl (0.2-1.0); Creatinine Clr Calc Pharmacy 34.4 ml/min; Est GFR (African American) 40.3 ml/min; Est GFR (Non-African American) 34.8 ml/min; Globulin 3.3 gm/dl (2.5-4.0); Potassium 3.9 mmol/L (3.5-5.1); Total Protein 7.1 gm/dl (6.0-8.3)
[2022-08-15] MEDS ORDERED: methylPREDNISolone 125 MG/2 ML VIAL IV STA (19:00)
[2022-08-15] MEDS ORDERED: ALBUT/IPRATROP 3MG/0.5MG NEB 3 ML VIAL NEB STA (19:00)
[2022-08-15 19:03] LABS: Appearance Urine Clear (Clear); Bacteria Urine Automated Negative (Negative); Bilirubin Urine Negative (Negative); Blood Urine Trace (Negative); Color Urine Dark Yellow; Glucose Urine UA Negative (Negative); Ketones Urine Negative (Negative); Leukocyte Esterase Urine Negative (Negative); Nitrite Urine Negative (Negative); Protein Urine 2+ (Negative); Specific Gravity Urine 1.016 (1.000-1.030); Urobilinogen Urine Negative (Negative); pH Urine 5.5 (4.5-7.5)
--- NOTE | 2022-08-15 19:10 | Emergency Department Note ---
Impression & Plan Acute exacerbation of chronic obstructive pulmonary disease, Acute hyponatremia, Elevated troponin I level, Thrombocytopenia ED Provider Note NAME: TYREE COOPER AGE: 82 SEX: M : 1940 ARRIVES VIA: Walk-In INFORMANT: Patient, ED PROVIDER(S): Julio Garrido DO CHIEF COMPLAINT: Shortness of breath HPI: The patient is an 82-year-old male who presented to the emergency department for an evaluation of difficulty breathing. The patient denies having a significant cough. He denies having any hemoptysis. He claims he has some chest "aching". He does have lower extremity swelling which is not new. He states he has lower extremity swelling at baseline. He does take atrial Coumadin for atrial fibrillation. He states he has been compliant with his outpatient medications otherwise. He has been using his inhaler with only minimal relief. He denies having any orthopnea. He denies having any recent trauma. He went to see his family doctor today and was sent directly to the emergency department for shortness of breath. Although he states his doctor did not have a specific diagnosis in mind. ROS: See above HPI for pertinent positives & negatives. A total of 10 systems reviewed and were otherwise negative. PAST MEDICAL HISTORY: See Below PAST SURGICAL HISTORY: See Below FAMILY HISTORY: See Below SOCIAL HISTORY: See Below HOME MEDICATIONS: See Below ALLERGIES: See Below VITALS: See Below PHYSICAL EXAMINATION: MEDICAL DECISION MAKING: GENERAL: Patient is awake alert in no acute distress patient is resting comfortably and showing no signs of anxiety EYES: The conjunctivae are clear. The pupils are round and reactive. EARS, NOSE, MOUTH AND THROAT: The nose is without any evidence of any deformity. Mucous membranes are moist. Tongue is midline. NECK: The neck is nontender and supple. RESPIRATORY: Diminished breath sounds are noted throughout. There are scattered rhonchi and wheezing. There was mild conversational dyspnea but no retractions. CARDIOVASCULAR: Tachycardic and regular heart sounds were noted to auscultation. There is no definite murmur. GASTROINTESTINAL: The abdomen is soft. Abdomen is nontender. MUSCULOSKELETAL/EXTREMITIES: There is no evidence of gross deformity full range of motion is noted in the hips and shoulders. SKIN: There is no obvious evidence of any rash. There are no petechiae, pallor or cyanosis noted. NEUROLOGIC: Patient is awake alert and oriented x3. The patient is an 82-year-old male who presented to the emergency department for an evaluation difficulty breathing. The patient describes difficulty breathing and some chest discomfort. The patient was seen his family doctor and sent to the emergency department because of his breathing difficulty. Initially he was tachycardic. Lung sounds were abnormal. I thought the patient's condition was much more consistent with COPD. He does have a history of previous lung surgery. I discussed the patient's laboratory and radiographic studies with him. Initially he was found to have an elevation in his troponin but a repeat of this was normal. Given the patient's findings as well as comorbidities I am unsure if the patient would be a good candidate for outpatient management. Certainly he does feel better. For this reason I discussed his case with the on-call [facility] hospitalist. They have agreed to evaluate the patient in the emergency department for further management and disposition. I was not overly concerned with the venous thromboembolic disease as the patient already takes Coumadin. If this requires further follow-up he may require further radiographic studies. Triage Nursing notes reviewed. Prior medical records reviewed Vital Signs: reviewed and remarkable for no significant abnormalities Differential diagnosis: Reactive airway disease, pneumonia, pneumothorax, COPD, CHF, infections, cardiac ischemia, pulmonary embolism, musculoskeletal, gastrointestinal, as well as other pathologies. ER treatment provided: See below Diagnostics interpreted by me: ECG: EKG was obtained in the emergency department. My interpretation is sinus rhythm at 95 bpm. Ectopic atrial beats were noted. Nonspecific ST segment depressions were noted in the lateral leads. LVH was suggested by voltage criteria. This was compared to a tracing from July 27, 2020. The ST segment abnormalities are new compared to previous tracing. Cardiac Monitoring: An order was placed for continuous cardiac monitoring. The monitor shows a rate of 89 bpm with sinus rhythm. Laboratory studies: As stated above and show below. Imaging studies: See below. Radiographic imaging was reviewed by myself Consultation(s): I discussed this case with Dr. Diop who is on-call for the [facility] hospitalist group. Past Med/Surg History Medical History Acid reflux Atrial fibrillation Roper's palsy CKD (chronic kidney disease) COPD (chronic obstructive pulmonary disease) Essential hypertension Gout History of anesthesia problem PT REPORTS "I STOPPED BREATHING" - CANNOT REMEMBER WHICH SURGERY, BUT IS SURE IT WAS AT [facility] [place] History of cancer THROAT, THYROID AND LUNG - LAST TREATMENT WAS 5 YR AGO History of skin cancer Hyperlipidemia Hypothyroidism Retinal artery occlusion LEFT EYE - Surgical History H/O thyroidectomy History of appendectomy History of cataract surgery LEFT History of cholecystectomy History of lobectomy of lung LEFT - LOWER AND RIGHT MIDDLE LOBES; SURGIES DONE [facility] IN [place]. LAST SURGERY 1994 History of repair of hiatal hernia X2 Family History Mother , in early age from MVA Hypertension Father , age 73 with silicosis No problems noted. 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 Feels Safe at Home: Yes Assistive Devices: Denture - Upper, Denture - Lower and Glasses Allergies Allergies Allergy/AdvReac Type Severity Reaction Status Date / Time enoxaparin Allergy Intermediate swelling Verified 08/15/22 19:08 Iodinated Contrast Media Allergy Intermediate "SWELLED Verified 08/15/22 19:08 UP" Penicillins Allergy Unknown RASH, Verified 08/15/22 19:08 THROAT SWELLING Home Meds Home Medications Medication Instructions Recorded Confirmed allopurinol 300 mg tablet 300 mg PO QAM 05/31/18 08/15/22 furosemide 80 mg tablet 40 mg PO 3XWK 05/31/18 08/15/22 levothyroxine 100 mcg tablet 100 mcg PO QAM 05/31/18 08/15/22 metoprolol succinate 50 mg 50 mg PO HS 05/31/18 08/15/22 tablet,extended release 24 hr nitroglycerin 0.4 mg sublingual 0.4 mg sublingual UD 05/31/18 08/15/22 tablet potassium chloride 20 mEq 40 meq PO DAILY 05/31/18 08/15/22 tablet,extended release(part/cryst) warfarin 2 mg tablet 2 mg PO 5XWK 05/31/18 08/15/22 warfarin 3 mg tablet 3 mg PO .QTUTH 05/31/18 08/15/22 atorvastatin 40 mg tablet 40 mg PO HS 10/27/18 08/15/22 losartan 100 mg tablet 100 mg PO HS 10/27/18 08/15/22 albuterol sulfate 90 mcg/actuation 2 puff inhalation QID PRN 08/15/22 08/15/22 aerosol inhaler (ProAir HFA) Shortness Of Breath Or Wheezing amlodipine 2.5 mg tablet 2.5 mg PO DAILY 08/15/22 08/15/22 amlodipine 5 mg tablet 5 mg PO DAILY 08/15/22 08/15/22 furosemide 80 mg tablet 80 mg PO 4XWK 08/15/22 08/15/22 turmeric 400 mg capsule 400 mg PO BID 08/15/22 08/15/22 Results & Data (ED) Vital Signs Vital Signs - 24 hr 08/15/22 17:19 08/15/22 18:39 08/15/22 18:47 Temperature 37.2 C Temperature Source Oral Pulse Rate 107 H 107 H 101 H Pulse Rate from SpO2 Sensor Respiratory Rate 18 Respiratory Effort / Characteristics Non-Labored Spontaneous Respiratory Depth Normal Respiratory Pattern Regular Blood Pressure 145/85 H Blood Pressure Mean 105 Blood Pressure Position Sitting Pulse Oximetry 94 97 Oxygen Delivery Method Room Air Room Air Oxygen Flow Rate 0 Sepsis Recent Fever Within 48 Hours No Sepsis New/Unexplained Change in Mental Status No Sepsis Action Taken by Nursing No Action Required 08/15/22 18:48 08/15/22 19:00 08/15/22 19:00 Temperature Temperature Source Pulse Rate 98 H 99 H Pulse Rate from SpO2 Sensor 98 H 100 H Respiratory Rate 21 28 H Respiratory Effort / Characteristics Respiratory Depth Respiratory Pattern Blood Pressure 140/76 Blood Pressure Mean 97 Blood Pressure Position Pulse Oximetry 96 95 Oxygen Delivery Method Oxygen Flow Rate Sepsis Recent Fever Within 48 Hours Sepsis New/Unexplained Change in Mental Status Sepsis Action Taken by Nursing 08/15/22 19:30 08/15/22 19:30 08/15/22 20:00 Temperature Temperature Source Pulse Rate 94 H Pulse Rate from SpO2 Sensor 90 Respiratory Rate 28 H Respiratory Effort / Characteristics Respiratory Depth Respiratory Pattern Blood Pressure 141/70 H 128/88 Blood Pressure Mean 93 101 Blood Pressure Position Pulse Oximetry 98 Oxygen Delivery Method Oxygen Flow Rate Sepsis Recent Fever Within 48 Hours Sepsis New/Unexplained Change in Mental Status Sepsis Action Taken by Nursing 08/15/22 20:00 08/15/22 20:30 08/15/22 20:30 Temperature Temperature Source Pulse Rate 93 H 95 H Pulse Rate from SpO2 Sensor 95 H 95 H Respiratory Rate 23 24 Respiratory Effort / Characteristics Respiratory Depth Respiratory Pattern Blood Pressure 122/71 Blood Pressure Mean 88 Blood Pressure Position Pulse Oximetry 96 94 Oxygen Delivery Method Oxygen Flow Rate Sepsis Recent Fever Within 48 Hours Sepsis New/Unexplained Change in Mental Status Sepsis Action Taken by Nursing 08/15/22 21:00 08/15/22 21:00 08/15/22 21:30 Temperature Temperature Source Pulse Rate 94 H Pulse Rate from SpO2 Sensor 92 H Respiratory Rate 21 Respiratory Effort / Characteristics Respiratory Depth Respiratory Pattern Blood Pressure 128/84 113/74 Blood Pressure Mean 98 87 Blood Pressure Position Pulse Oximetry 92 Oxygen Delivery Method Oxygen Flow Rate Sepsis Recent Fever Within 48 Hours Sepsis New/Unexplained Change in Mental Status Sepsis Action Taken by Nursing 08/15/22 21:30 Temperature Temperature Source Pulse Rate 85 Pulse Rate from SpO2 Sensor 84 Respiratory Rate 21 Respiratory Effort / Characteristics Respiratory Depth Respiratory Pattern Blood Pressure Blood Pressure Mean Blood Pressure Position Pulse Oximetry 95 Oxygen Delivery Method Oxygen Flow Rate Sepsis Recent Fever Within 48 Hours Sepsis New/Unexplained Change in Mental Status Sepsis Action Taken by [facility] Medications Current Medication List: was personally reviewed by me Laboratory Data Attestation: I reviewed the patient's lab results. 08/15/22 18:09 08/15/22 18:09 Lab Results 08/15/22 08/15/22 08/15/22 Range/Units 18:09 18:09 18:09 WBC 7.06 (4.8-10.8) K/ul RBC 4.96 (4.70-6.10) M/uL Hgb 15.0 (14.0-18.0) g/dl Hct 43.2 (42.0-52.0) % MCV 87.1 (80.0-100.0) fL MCH 30.2 (25.0-34.0) pg MCHC 34.7 (32.0-36.0) g/dL RDW Std Deviation 49.3 H (36.4-46.3) fL RDW Coeff of Jeremiah 15.7 H (11.5-14.5) % Plt Count 97 L (130-400) K/uL MPV 11.3 (9.4-12.4) fL Immature Gran % (Auto) 0.6 % Neut % (Auto) 86.8 % Lymph % (Auto) 4.8 % Hartley % (Auto) 7.5 % Eos % (Auto) 0.0 % Baso % (Auto) 0.3 % Neut # (Auto) 6.13 (1.40-6.50) K/uL Lymph # (Auto) 0.34 L (1.2-3.4) K/uL Hartley # (Auto) 0.53 (0.11-0.59) K/uL Eos # (Auto) 0.00 (0-0.50) K/uL Baso # (Auto) 0.02 (0-0.2) K/uL Immature Gran # (Auto) 0.04 (0.01-0.20) K/uL Dohle Bodies 1+ Platelet Estimate Decreased L (Normal) Polychromasia 1+ Tear Drop Cells 1+ Echinocytes 1+ PT (9.0-12.0) Seconds INR (0.9-1.1) APTT (21.0-31.0) Seconds PTT Ratio Sodium 130 L (136-145) mmol/L Potassium 3.9 (3.5-5.1) mmol/L Chloride 97 L (98-107) mmol/L Carbon Dioxide 26 (21-32) mmol/L Anion Gap 7 (3-11) BUN 25 H (6-23) mg/dl Creatinine 1.79 H (0.6-1.4) mg/dl Est Cr Clr Drug Dosing 34.4 ml/min Est GFR ( Amer) 40.3 ml/min Est GFR (Non-Af Amer) 34.8 ml/min BUN/Creatinine Ratio 14.0 (10-20) Glucose 120 H (70-99(Fasting)) mg/dl Calcium 9.0 (8.6-10.3) mg/dl Total Bilirubin 1.7 H (0.2-1.0) mg/dl AST 30 (13-39) U/L ALT 22 (7-52) U/L Alkaline Phosphatase 96 (34-104) U/L Troponin I High Sens 25.4 H (0-20) pg/ml Total Protein 7.1 (6.0-8.3) gm/dl Albumin 3.8 (3.4-5.0) gm/dl Globulin 3.3 (2.5-4.0) gm/dl Albumin/Globulin Ratio 1.2 (0.9-2) Urine Color Urine Appearance (Clear) Urine pH (4.5-7.5) Ur Specific [place] (1.000-1.030) Urine Protein (Negative) Urine Glucose (UA) (Negative) Urine Ketones (Negative) Urine Blood (Negative) Urine Nitrite (Negative) Urine Bilirubin (Negative) Urine Urobilinogen (Negative) Ur Leukocyte Esterase (Negative) Urine WBC (Auto) (0-5) /hpf Urine RBC (Auto) (0-4) /hpf U Hyaline Cast (Auto) (0-5) /lpf U Epithel Cells (Auto) (0-5) /lpf Urine Bacteria (Auto) (Negative) SARS-CoV-2 (PCR) (Negative) Influenza Type A (PCR) (Neg) Influenza Type B (PCR) (Neg) RSV (RT-PCR) (Neg) 08/15/22 08/15/22 08/15/22 Range/Units 18:09 18:11 18:36 WBC (4.8-10.8) K/ul RBC (4.70-6.10) M/uL Hgb (14.0-18.0) g/dl Hct (42.0-52.0) % MCV (80.0-100.0) fL MCH (25.0-34.0) pg MCHC (32.0-36.0) g/dL RDW Std Deviation (36.4-46.3) fL RDW Coeff of Jeremiah (11.5-14.5) % Plt Count (130-400) K/uL MPV (9.4-12.4) fL Immature Gran % (Auto) % Neut % (Auto) % Lymph % (Auto) % Hartley % (Auto) % Eos % (Auto) % Baso % (Auto) % Neut # (Auto) (1.40-6.50) K/uL Lymph # (Auto) (1.2-3.4) K/uL Hartley # (Auto) (0.11-0.59) K/uL Eos # (Auto) (0-0.50) K/uL Baso # (Auto) (0-0.2) K/uL Immature Gran # (Auto) (0.01-0.20) K/uL Dohle Bodies Platelet Estimate (Normal) Polychromasia Tear Drop Cells Echinocytes PT 24.3 H (9.0-12.0) Seconds INR 2.3 H (0.9-1.1) APTT 35.3 H (21.0-31.0) Seconds PTT Ratio 1.3 Sodium (136-145) mmol/L Potassium (3.5-5.1) mmol/L Chloride (98-107) mmol/L Carbon Dioxide (21-32) mmol/L Anion Gap (3-11) BUN (6-23) mg/dl Creatinine (0.6-1.4) mg/dl Est Cr Clr Drug Dosing ml/min Est GFR ( Amer) ml/min Est GFR (Non-Af Amer) ml/min BUN/Creatinine Ratio (10-20) Glucose (70-99(Fasting)) mg/dl Calcium (8.6-10.3) mg/dl Total Bilirubin (0.2-1.0) mg/dl AST (13-39) U/L ALT (7-52) U/L Alkaline Phosphatase (34-104) U/L Troponin I High Sens (0-20) pg/ml Total Protein (6.0-8.3) gm/dl Albumin (3.4-5.0) gm/dl Globulin (2.5-4.0) gm/dl Albumin/Globulin Ratio (0.9-2) Urine Color Dark Yellow Urine Appearance Clear (Clear) Urine pH 5.5 (4.5-7.5) Ur Specific [place] 1.016 (1.000-1.030) Urine Protein 2+ H (Negative) Urine Glucose (UA) Negative (Negative) Urine Ketones Negative (Negative) Urine Blood Trace H (Negative) Urine Nitrite Negative (Negative) Urine Bilirubin Negative (Negative) Urine Urobilinogen Negative (Negative) Ur Leukocyte Esterase Negative (Negative) Urine WBC (Auto) 1-5 (0-5) /hpf Urine RBC (Auto) 5-10 H (0-4) /hpf U Hyaline Cast (Auto) 1-5 (0-5) /lpf U Epithel Cells (Auto) 5-10 H (0-5) /lpf Urine Bacteria (Auto) Negative (Negative) SARS-CoV-2 (PCR) NEGATIVE (Negative) Influenza Type A (PCR) Negative (Neg) Influenza Type B (PCR) Negative (Neg) RSV (RT-PCR) Negative (Neg) 08/15/22 Range/Units 20:30 WBC (4.8-10.8) K/ul RBC (4.70-6.10) M/uL Hgb (14.0-18.0) g/dl Hct (42.0-52.0) % MCV (80.0-100.0) fL MCH (25.0-34.0) pg MCHC (32.0-36.0) g/dL RDW Std Deviation (36.4-46.3) fL RDW Coeff of Jeremiah (11.5-14.5) % Plt Count (130-400) K/uL MPV (9.4-12.4) fL Immature Gran % (Auto) % Neut % (Auto) % Lymph % (Auto) % Hartley % (Auto) % Eos % (Auto) % Baso % (Auto) % Neut # (Auto) (1.40-6.50) K/uL Lymph # (Auto) (1.2-3.4) K/uL Hartley # (Auto) (0.11-0.59) K/uL Eos # (Auto) (0-0.50) K/uL Baso # (Auto) (0-0.2) K/uL Immature Gran # (Auto) (0.01-0.20) K/uL Dohle Bodies Platelet Estimate (Normal) Polychromasia Tear Drop Cells Echinocytes PT (9.0-12.0) Seconds INR (0.9-1.1) APTT (21.0-31.0) Seconds PTT Ratio Sodium (136-145) mmol/L Potassium (3.5-5.1) mmol/L Chloride (98-107) mmol/L Carbon Dioxide (21-32) mmol/L Anion Gap (3-11) BUN (6-23) mg/dl Creatinine (0.6-1.4) mg/dl Est Cr Clr Drug Dosing ml/min Est GFR ( Amer) ml/min Est GFR (Non-Af Amer) ml/min BUN/Creatinine Ratio (10-20) Glucose (70-99(Fasting)) mg/dl Calcium (8.6-10.3) mg/dl Total Bilirubin (0.2-1.0) mg/dl AST (13-39) U/L ALT (7-52) U/L Alkaline Phosphatase (34-104) U/L Troponin I High Sens 18.0 D (0-20) pg/ml Total Protein (6.0-8.3) gm/dl Albumin (3.4-5.0) gm/dl Globulin (2.5-4.0) gm/dl Albumin/Globulin Ratio (0.9-2) Urine Color Urine Appearance (Clear) Urine pH (4.5-7.5) Ur Specific [place] (1.000-1.030) Urine Protein (Negative) Urine Glucose (UA) (Negative) Urine Ketones (Negative) Urine Blood (Negative) Urine Nitrite (Negative) Urine Bilirubin (Negative) Urine Urobilinogen (Negative) Ur Leukocyte Esterase (Negative) Urine WBC (Auto) (0-5) /hpf Urine RBC (Auto) (0-4) /hpf U Hyaline Cast (Auto) (0-5) /lpf U Epithel Cells (Auto) (0-5) /lpf Urine Bacteria (Auto) (Negative) SARS-CoV-2 (PCR) (Negative) Influenza Type A (PCR) (Neg) Influenza Type B (PCR) (Neg) RSV (RT-PCR) (Neg) Administered Medications Discontinued Medications Albuterol (Albut/Ipratrop 3mg/0.5mg Neb 3 Ml Vial) 3 ml NEB NOW STA; Protocol Stop: 08/15/22 19:01 Last Admin: 08/15/22 19:22 Dose: 3 ml Documented By: FAY Methylprednisolone (Methylprednisolone 125 Mg/2 Ml Vial) 125 mg IV NOW STA Stop: 08/15/22 19:01 Last Admin: 08/15/22 19:21 Dose: 125 mg Documented By: FAY Imaging Data Attestation: I personally reviewed and interpreted this imaging study as follows: My Impression: 1 view chest x-ray was obtained in the emergency department. My interpretation is no free air, no definite filtrate, final report below. Radiologist's Impression: Chest X-Ray 08/15/22 17:22 SINGLE VIEW CHEST CLINICAL HISTORY: Dyspnea. Chills. FINDINGS: 2 AP, portable, upright chest radiographs are compared to study dated 07/23/2022 and correlated with chest CT dated 07/25/2022. The examination is degraded by portable technique and apical lordotic positioning. A left subclav lelia central venous infusion port is unchanged in position. A hiatal hernia is noted. The heart is mildly enlarged noting atherosclerotic calcification of the thoracic aorta. The pulmonary vasculature is noncongested. There is chronic elevation of the right hemidiaphragm. Fibrotic change is seen at both lung bases, with additional foci of parenchymal scarring seen throughout both lungs. No superimposed airspace consolidation or large pleural effusion is identified. No pneumothorax is seen. The skeletal structures are osteopenic. The bony thorax is grossly intact. Technical clips are noted in the right upper quadrant. IMPRESSION: 1. Chronic parenchymal changes as above with no acute cardiopulmonary abnormality. 2. Hiatal hernia. ACT 112: Negative or not required by law. Electronically signed by: Luis Manuel Quintanilla M.D. 08/15/2022 7:16 PM Discharge Plan Visit Data Chief Complaint: Referred by Doctor Stated Complaint: TO BE ADMIT,RAPID HEART BEAT,CHILLS,ACHES,DIARREAH ED Provider: Julio Garrido Discharge Problem: Acute exacerbation of chronic obstructive pulmonary disease, Acute hyponatremia, Elevated troponin I level, Thrombocytopenia Patient Disposition: Being Evaluated by Hospitalist Forms Stand Alone Forms: My [facility] Prescriptions Prescriptions: No Action metoprolol succinate 50 mg tablet extended release 24 hr 50 mg PO HS warfarin 3 mg tablet 3 mg PO .QTUTH levothyroxine 100 mcg tablet 100 mcg PO QAM potassium chloride 20 mEq tablet,ER particles/crystals 40 meq PO DAILY furosemide 80 mg tablet 40 mg PO 3XWK Rx Instructions: Take mon, wed, fri warfarin 2 mg tablet 2 mg PO 5XWK Rx Instructions: Take 2 mg sun, mon, wed, fri, sat nitroglycerin 0.4 mg tablet, sublingual 0.4 mg Sublingual UD allopurinol 300 mg tablet 300 mg PO QAM losartan 100 mg Tablet 100 mg PO HS atorvastatin 40 mg Tablet 40 mg PO HS furosemide 80 mg tablet 80 mg PO 4XWK Rx Instructions: Take , , thu, sun turmeric 400 mg Capsule 400 mg PO BID amlodipine 2.5 mg tablet 2.5 mg PO DAILY amlodipine 5 mg tablet 5 mg PO DAILY Rx Instructions: take with a 2.5mg tab = 7.5mg albuterol sulfate [ProAir HFA] 90 mcg/actuation HFA aerosol inhaler 2 puff INHALATION QID PRN (Reason: Shortness Of Breath Or Wheezing) Referrals Referrals: Nubia Simms [Primary Care Provider] -
[2022-08-15 19:12] LABS: Basophils # (auto) 0.02 K/uL (0-0.2); Basophils % (auto) 0.3 %; Dohle Bodies 1+; Echinocytes 1+; Hematocrit (blood only) 43.2 % (42.0-52.0); Immature Granulocytes # (auto) 0.04 K/uL (0.01-0.20); Immature Granulocytes % (auto) 0.6 %; Lymphocytes # (auto) 0.34 K/uL (1.2-3.4); Lymphocytes % (auto) 4.8 %; Mean Corpuscular Hemoglobin 30.2 pg (25.0-34.0); Mean Corpuscular Hgb Conc 34.7 g/dL (32.0-36.0); Mean Corpuscular Volume 87.1 fL (80.0-100.0); Mean Platelet Volume 11.3 fL (9.4-12.4); Monocytes # (auto) 0.53 K/uL (0.11-0.59); Monocytes % (auto) 7.5 %; Neutrophils # (auto) 6.13 K/uL (1.40-6.50); Neutrophils % (auto) 86.8 %; Platelet Count 97 K/uL (130-400); Platelet Estimate Decreased (Normal); Polychromasia 1+; RDW Coefficient of Variation 15.7 % (11.5-14.5); RDW Standard Deviation 49.3 fL (36.4-46.3); Red Blood Count 4.96 M/uL (4.70-6.10); Tear Drop Cells 1+; White Blood Count 7.06 K/ul (4.8-10.8)
[2022-08-15 19:18] LABS: Influenza A virus by PCR Negative (Neg); Influenza B virus by PCR Negative (Neg); RSV by PCR Negative (Neg); SARS CoV2 RNA(COVID-19) Ceph NEGATIVE (Negative)
--- NOTE | 2022-08-15 19:18 | XRay Report ---
SINGLE VIEW CHEST CLINICAL HISTORY: Dyspnea. Chills. FINDINGS: 2 AP, portable, upright chest radiographs are compared to study dated 07/23/2022 and correla armando with chest CT dated 07/25/2022. The examination is degraded by portable technique and apical lordo tic positioning. A left subclavian central venous infusion port is unchanged in position. A hiatal he rnia is noted. The heart is mildly enlarged noting atherosclerotic calcification of the thoracic aort a. The pulmonary vasculature is noncongested. There is chronic elevation of the right hemidiaphragm. Fibrotic change is seen at both lung bases, with additional foci of parenchymal scarring seen through out both lungs. No superimposed airspace consolidation or large pleural effusion is identified. No pn eumothorax is seen. The skeletal structures are osteopenic. The bony thorax is grossly intact. Techni meredith clips are noted in the right upper quadrant. IMPRESSION: 1. Chronic parenchymal changes as above with no acute cardiopulmonary abnormality. 2. Hiatal hernia. ACT 112: Negative or not required by law. Electronically signed by: Luis Manuel Quintanilla M.D. 08/15/2022 7:16 PM
[2022-08-15 19:33] LABS: INR 2.3 (0.9-1.1); Partial Thromboplastin Ratio 1.3; Partial Thromboplastin Time 35.3 Seconds (21.0-31.0); Prothrombin Time 24.3 Seconds (9.0-12.0)
[2022-08-15] MEDS ORDERED: DOXYCYCLINE HYCLATE 100 MG in DEXTROSE 5% 100 ML IV STA (21:52)
--- NOTE | 2022-08-15 22:02 | History & Physical Report ---
Date of Service August 15, 2022 Assessment & Plan (1) Weakness: Plan: 82-year-old male with fairly cute onset of chills, sweats, generalized weakness as well as nausea and diarrhea. Labs with normal WBC, thrombocytopenia with platelets = 97 (previously normal at 184 on 02/25/2022), lymphopenia, mild elevation of total bilirubin. Possible tickborne illness Observation to medical Maintain fall precautions and aspiration precautions Patient has been given 100 mg of doxycycline We will follow on tick panel Continue doxycycline for now Gentle IV fluids LR at 80 mL/h x 1 L Tylenol as needed for pain or fever (2) Paroxysmal atrial fibrillation: Plan: Patient presently in sinus rhythm with PACs, anticoagulated on Coumadin with INR therapeutic at 2.3 Continue Coumadin Monitor INR Continue metoprolol (3) Acquired hypothyroidism: Plan: Chronic. Stable. Last TSH 02/25/2022 normal at 1.14 Continue Synthroid 100 mcg p.o. daily Continue outpatient follow-up (4) Essential hypertension: Plan: Blood pressure adequately controlled at present Continue amlodipine 7.5 mg p.o. daily Continue losartan 100 mg p.o. nightly Continue metoprolol 50 mg p.o. nightly Continue to monitor (5) CKD (chronic kidney disease) stage 3, GFR 30-59 ml/min: Plan: BUN = 25, creatinine = 1.79 near baseline Gentle IV fluids with LR at 80 mL/h x 1 L Repeat chemistry in the morning Losartan to start tomorrow 08/17/2019 3 PM We will resume patient's standing Lasix on 08/18/2022 (6) Hyperlipidemia: Plan: Chronic. Stable. Continue atorvastatin 40 mg p.o. nightly F/E/NLR at 80 mL/h x 1 L, mild hypomagnesemia with mag = 1.6, mild hypophosphatemia with PO4 = 2. Will replete with magnesium sulfate x2 g and Neutra-Phos 4 times daily x2 days, heart healthy diet as tolerated ProphylaxisSCDs to bilateral lower extremities. Codefull per discussion with patient Dispositionobservation to medical floor History of Present Illness Chief Complaint: Chills, weakness Primary Care Provider: Nubia Simms Mr. Petr Hadley is an 82-year-old male with history of multiple cancers (throat, lung, thyroid and skinsurgically managed) atrial fibrillation on Co umadin anticoagulation, hypertension, hyperlipidemia, COPD presenting with 1 day of illness. Patient was seen by his primary care physician earlier today and sent to the ER. He reports waking this morning with chills and generalized weakness. He also reports body aches, chest soreness, nausea, watery/nonbloody diarrhea, cough, shortness of breath and dyspnea on exertion. Symptoms were fairly sudden in onset. He reports not sleeping last night. He denies fever but has been breaking into sweats intermittently throughout the day. He denies chest pain, palpitations, dizziness. Denies dysuria or other urinary complaints. He denies orthopnea or weight gain. Has stable unchanged lower extremity edema bilaterally. Patient had recent pneumonia and was treated with a 5-day course of Levaquin. He did report resolution of his pneumonia symptoms after completing his antibiotic. No sick contacts, recent travel or change in medications. He does not recall any tick bites [place] Patient lives at home and is independent. In the ER he is afebrile, hemodynamically stable, tachypneic with respiratory rate of 28 but adequate oxygenation on room air. Allergies Allergy/AdvReac Type Severity Reaction Status Date / Time enoxaparin Allergy Intermediate swelling Verified 08/15/22 19:08 Iodinated Contrast Media Allergy Intermediate "SWELLED Verified 08/15/22 19:08 UP" Penicillins Allergy Unknown RASH, Verified 08/15/22 19:08 THROAT SWELLING Home Medications Medication Instructions Recorded Confirmed Type allopurinol 300 mg tablet 300 mg PO QAM 05/31/18 08/15/22 History furosemide 80 mg tablet 40 mg PO 3XWK 05/31/18 08/15/22 History levothyroxine 100 mcg tablet 100 mcg PO QAM 05/31/18 08/15/22 History metoprolol succinate 50 mg 50 mg PO HS 05/31/18 08/15/22 History tablet,extended release 24 hr nitroglycerin 0.4 mg sublingual 0.4 mg sublingual UD 05/31/18 08/15/22 History tablet potassium chloride 20 mEq 40 meq PO DAILY 05/31/18 08/15/22 History tablet,extended release(part/cryst) warfarin 2 mg tablet 2 mg PO 5XWK 05/31/18 08/15/22 History warfarin 3 mg tablet 3 mg PO .QTUTH 05/31/18 08/15/22 History atorvastatin 40 mg tablet 40 mg PO HS 10/27/18 08/15/22 History losartan 100 mg tablet 100 mg PO HS 10/27/18 08/15/22 History albuterol sulfate 90 mcg/actuation 2 puff inhalation QID PRN 08/15/22 08/15/22 History aerosol inhaler (ProAir HFA) Shortness Of Breath Or Wheezing amlodipine 2.5 mg tablet 2.5 mg PO DAILY 08/15/22 08/15/22 History amlodipine 5 mg tablet 5 mg PO DAILY 08/15/22 08/15/22 History furosemide 80 mg tablet 80 mg PO 4XWK 08/15/22 08/15/22 History turmeric 400 mg capsule 400 mg PO BID 08/15/22 08/15/22 History Past Med/Surg History Medical History (Updated 08/15/22 @ 23:51 by Trisha Diop DO) Acid reflux Atrial fibrillation Roper's palsy CKD (chronic kidney disease) COPD (chronic obstructive pulmonary disease) Essential hypertension Gout History of anesthesia problem PT REPORTS "I STOPPED BREATHING" - CANNOT REMEMBER WHICH SURGERY, BUT IS SURE IT WAS AT [facility] EM[facility] History of cancer THROAT, THYROID AND LUNG - LAST TREATMENT WAS 5 YR AGO History of skin cancer Hyperlipidemia Hypothyroidism Retinal artery occlusion LEFT EYE - Surgical History H/O thyroidectomy History of appendectomy History of cataract surgery LEFT History of cholecystectomy History of lobectomy of lung LEFT - LOWER AND RIGHT MIDDLE LOBES; SURGIES DONE [facility] IN [place]. LAST SURGERY 1994 History of repair of hiatal hernia X2 Family History Mother , in early age from MVA Hypertension Father , age 73 with silicosis No problems noted. 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 Other Information That Helps Us Care for You: No Feels Safe at Home: Yes Safety Concerns: Feels Safe At This Time Assistive Devices: Denture - Upper and Denture - Lower Review of Systems Review of Systems: All systems reviewed & are unremarkable except as noted in HPI & below Physical Exam Physical Exam: General: patient appears ill, NAD, AA&O x 4 Skin: warm, dry, intact, no rashes or lesions HEENT: NC/AT, PERRL, EOMI, anicteric sclera, conjunctiva without injection, external ear normal to inspection and nontender, nares patent, moist mucus membranes, dentition intact, no oropharyngeal lesions, neck supple, trachea midline, no LAD, no thyromegaly, no JVD Heart: +S1/S2, regular, no m/r/g Lungs: equal air entry bilaterally, no rales/rhonchi/wheezes Abd: +BS, soft, NT/ND, no masses/organomegaly/ascites Ext: warm, 2+ pulses in UE/LE bilaterally, no clubbing/cyanosis or edema Neuro: nonfocal, patient AA&O x 4, speech intact, no facial droop, moving all extremities on command with equal strength 5/5 Results & Data Results & Data Vital Signs (Past 12 Hours) Vital Signs Temp Pulse Resp BP Pulse Ox O2 Del Method O2 Flow Rate 08/15/22 21:30 85 21 95 08/15/22 21:30 113/74 08/15/22 21:00 94 H 21 92 08/15/22 21:00 128/84 08/15/22 20:30 95 H 24 94 08/15/22 20:30 122/71 08/15/22 20:00 93 H 23 96 08/15/22 20:00 128/88 08/15/22 19:30 94 H 28 H 98 08/15/22 19:30 141/70 H 08/15/22 19:00 99 H 28 H 95 08/15/22 19:00 140/76 08/15/22 18:48 98 H 21 96 08/15/22 18:47 101 H 08/15/22 18:39 107 H 97 Room Air 0 08/15/22 17:19 37.2 C 107 H 18 145/85 H 94 Room Air Laboratory Results Laboratory Results WBC 7.06 K/ul (4.8-10.8) 08/15/22 18:09 RBC 4.96 M/uL (4.70-6.10) 08/15/22 18:09 Hgb 15.0 g/dl (14.0-18.0) 08/15/22 18:09 Hct 43.2 % (42.0-52.0) 08/15/22 18:09 MCV 87.1 fL (80.0-100.0) 08/15/22 18:09 MCH 30.2 pg (25.0-34.0) 08/15/22 18:09 MCHC 34.7 g/dL (32.0-36.0) 08/15/22 18:09 RDW Std Deviation 49.3 fL (36.4-46.3) H 08/15/22 18:09 RDW Coeff of Jeremiah 15.7 % (11.5-14.5) H 08/15/22 18:09 Plt Count 97 K/uL (130-400) L 08/15/22 18:09 MPV 11.3 fL (9.4-12.4) 08/15/22 18:09 Immature Gran % (Auto) 0.6 % 08/15/22 18:09 Neut % (Auto) 86.8 % 08/15/22 18:09 Lymph % (Auto) 4.8 % 08/15/22 18:09 [place] % (Auto) 7.5 % 08/15/22 18:09 Eos % (Auto) 0.0 % 08/15/22 18:09 Baso % (Auto) 0.3 % 08/15/22 18:09 Neut # (Auto) 6.13 K/uL (1.40-6.50) 08/15/22 18:09 Lymph # (Auto) 0.34 K/uL (1.2-3.4) L 08/15/22 18:09 [place] # (Auto) 0.53 K/uL (0.11-0.59) 08/15/22 18:09 Eos # (Auto) 0.00 K/uL (0-0.50) 08/15/22 18:09 Baso # (Auto) 0.02 K/uL (0-0.2) 08/15/22 18:09 Immature Gran # (Auto) 0.04 K/uL (0.01-0.20) 08/15/22 18:09 Dohle Bodies 1+ 08/15/22 18:09 Platelet Estimate Decreased (Normal) L 08/15/22 18:09 Polychromasia 1+ 08/15/22 18:09 Tear Drop Cells 1+ 08/15/22 18:09 Echinocytes 1+ 08/15/22 18:09 PT 24.3 Seconds (9.0-12.0) H 08/15/22 18:09 INR 2.3 (0.9-1.1) H 08/15/22 18:09 APTT 35.3 Seconds (21.0-31.0) H 08/15/22 18:09 PTT Ratio 1.3 08/15/22 18:09 Sodium 130 mmol/L (136-145) L 08/15/22 18:09 Potassium 3.9 mmol/L (3.5-5.1) 08/15/22 18:09 Chloride 97 mmol/L (98-107) L 08/15/22 18:09 Carbon Dioxide 26 mmol/L (21-32) 08/15/22 18:09 Anion Gap 7 (3-11) 08/15/22 18:09 BUN 25 mg/dl (6-23) H 08/15/22 18:09 Creatinine 1.79 mg/dl (0.6-1.4) H 08/15/22 18:09 Est Cr Clr Drug Dosing 34.4 ml/min 08/15/22 18:09 Est GFR ( Amer) 40.3 ml/min 08/15/22 18:09 Est GFR (Non-Af Amer) 34.8 ml/min 08/15/22 18:09 BUN/Creatinine Ratio 14.0 (10-20) 08/15/22 18:09 Glucose 120 mg/dl (70-99(Fasting)) H 08/15/22 18:09 Calcium 9.0 mg/dl (8.6-10.3) 08/15/22 18:09 Phosphorus 2.0 mg/dl (2.5-4.9) L 08/15/22 20:30 Magnesium 1.6 mg/dl (1.7-2.4) L 08/15/22 20:30 Total Bilirubin 1.7 mg/dl (0.2-1.0) H 08/15/22 18:09 AST 30 U/L (13-39) 08/15/22 18:09 ALT 22 U/L (7-52) 08/15/22 18:09 Alkaline Phosphatase 96 U/L (34-104) 08/15/22 18:09 Troponin I High Sens 18.0 pg/ml (0-20) D 08/15/22 20:30 Total Protein 7.1 gm/dl (6.0-8.3) 08/15/22 18:09 Albumin 3.8 gm/dl (3.4-5.0) 08/15/22 18:09 Globulin 3.3 gm/dl (2.5-4.0) 08/15/22 18:09 Albumin/Globulin Ratio 1.2 (0.9-2) 08/15/22 18:09 Urine Color Dark Yellow 08/15/22 18:36 Urine Appearance Clear (Clear) 08/15/22 18:36 Urine pH 5.5 (4.5-7.5) 08/15/22 18:36 Ur Specific [place] 1.016 (1.000-1.030) 08/15/22 18:36 Urine Protein 2+ (Negative) H 08/15/22 18:36 Urine Glucose (UA) Negative (Negative) 08/15/22 18:36 Urine Ketones Negative (Negative) 08/15/22 18:36 Urine Blood Trace (Negative) H 08/15/22 18:36 Urine Nitrite Negative (Negative) 08/15/22 18:36 Urine Bilirubin Negative (Negative) 08/15/22 18:36 Urine Urobilinogen Negative (Negative) 08/15/22 18:36 Ur Leukocyte Esterase Negative (Negative) 08/15/22 18:36 Urine WBC (Auto) 1-5 /hpf (0-5) 08/15/22 18:36 Urine RBC (Auto) 5-10 /hpf (0-4) H 08/15/22 18:36 U Hyaline Cast (Auto) 1-5 /lpf (0-5) 08/15/22 18:36 U Epithel Cells (Auto) 5-10 /lpf (0-5) H 08/15/22 18:36 Urine Bacteria (Auto) Negative (Negative) 08/15/22 18:36 SARS-CoV-2 (PCR) NEGATIVE (Negative) 08/15/22 18:11 Influenza Type A (PCR) Negative (Neg) 08/15/22 18:11 Influenza Type B (PCR) Negative (Neg) 08/15/22 18:11 RSV (RT-PCR) Negative (Neg) 08/15/22 18:11 Impressions Chest X-Ray 08/15/22 17:22 SINGLE VIEW CHEST CLINICAL HISTORY: Dyspnea. Chills. FINDINGS: 2 AP, portable, upright chest radiographs are compared to study dated 07/23/2022 and correlated with chest CT dated 07/25/2022. The examination is degraded by portable technique and apical lordotic positioning. A left subclavian central venous infusion port is unchanged in position. A hiatal hernia is noted. The heart is mildly enlarged noting atherosclerotic calcification of the thoracic aorta. The pulmonary vasculature is noncongested. There is chronic elevation of the right hemidiaphragm. Fibrotic change is seen at both lung bases, with additional foci of parenchymal scarring seen throughout both lungs. No superimposed airspace consolidation or large pleural effusion is identified. No pneumothorax is seen. The skeletal structures are osteopenic. The bony thorax is grossly intact. Technical clips are noted in the right upper quadrant. IMPRESSION: 1. Chronic parenchymal changes as above with no acute cardiopulmonary abnormality. 2. Hiatal hernia. ACT 112: Negative or not required by law. Electronically signed by: Luis Manuel Quintanilla M.D. 08/15/2022 7:16 PM ECG Additional Comments: EKGper my interpretation the study shows sinus rhythm with premature atrial complexes at 95 bpm, WV = 1, QRS = 96, QTc = 464, nonspecific ST changes PG Care Time/CCT Total # of Minutes Spent Total Time Spent with Patient: Total time spent is greater than 50% in coordination of care (as documented) at patient's floor/unit and/or counseling patient: Coding Level of Care Code 97870 INT INP/OBS CARE 3/75MIN Diagnoses Weakness R53.1 Paroxysmal atrial fibrillation I48.0 Acquired hypothyroidism E03.9 Essential hypertension I10 CKD (chronic kidney disease) stage 3, GFR 30-59 ml/min N18.3 Hyperlipidemia E78.5
[2022-08-15] MEDS ORDERED: ONDANSETRON INJ 2 MG/ML 2 ML VIAL IV PRN (23:05)
[2022-08-15] MEDS ORDERED: ACETAMINOPHEN 325 MG TAB PO PRN (23:05)
[2022-08-15] MEDS ORDERED: ALBUTEROL HFA 8 GM INHALER INH PRN (23:05)
[2022-08-15] MEDS ORDERED: LACTATED RINGER'S 1,000 ML IV SCH (23:30)
[2022-08-15 23:44] LABS: Magnesium 1.6 mg/dl (1.7-2.4)
[2022-08-16] MEDS: MAGNESIUM SULFATE / D5W 1 GM/100 ML BAG IV SCH ×2 (00:29→02:04)
[2022-08-16] MEDS ORDERED: WARFARIN SOD 2 MG TAB PO ONE (00:34)
[2022-08-16 00:42] LABS: Procalcitonin 30.97 ng/ml (0-0.5)
[2022-08-16 00:48] LABS: Lyme Ab IgG w/WB Rflx Negative (Negative); Lyme Ab IgM w/WB Rflx Negative (Negative)
[2022-08-16] MEDS: LEVOTHYROXINE SODIUM 100 MCG TABLET PO SCH (05:54)
[2022-08-16 06:20] LABS: Albumin Level 3.4 gm/dl (3.4-5.0); BUN Creatinine Ratio 17.2 (10-20); Bilirubin Direct 0.2 mg/dl (0-0.2); Bilirubin,Total 1.4 mg/dl (0.2-1.0); Calcium 8.6 mg/dl (8.6-10.3); Creatinine Clr Calc Pharmacy 40.9 ml/min; Est GFR (African American) 49.5 ml/min; Est GFR (Non-African American) 42.7 ml/min; Potassium 3.6 mmol/L (3.5-5.1); Total Protein 6.5 gm/dl (6.0-8.3)
[2022-08-16 06:21] LABS: Hematocrit (blood only) 39.3 % (42.0-52.0); Hemoglobin 13.6 g/dl (14.0-18.0); Mean Corpuscular Hemoglobin 30.2 pg (25.0-34.0); Mean Corpuscular Hgb Conc 34.6 g/dL (32.0-36.0); Mean Corpuscular Volume 87.3 fL (80.0-100.0); Mean Platelet Volume 10.4 fL (9.4-12.4); Platelet Count 91 K/uL (130-400); RDW Standard Deviation 47.8 fL (36.4-46.3)
[2022-08-16 06:35] LABS: INR 2.6 (0.9-1.1); Prothrombin Time 26.6 Seconds (9.0-12.0)
[2022-08-16] MEDS: amLODIPine BESYLATE 5 MG TAB PO SCH (08:06)
[2022-08-16] MEDS: POT PHOSPHATE MONOBASIC W/ SOD TAB PO SCH ×4 (08:06→19:45)
[2022-08-16] MEDS: allopurinoL 300 MG TAB PO SCH (08:06)
[2022-08-16] MEDS: FUROSEMIDE 80 MG TAB PO SCH (08:06)
[2022-08-16 08:37] LABS: Estimated Average Glucose 126 mg/dl
[2022-08-16] MEDS ORDERED: amLODIPine BESYLATE 5 MG TAB PO SCH (09:00)
--- NOTE | 2022-08-16 10:48 | Electrocardiogram Report ---
Test Reason : Blood Pressure : / mmHG Vent. Rate : 095 BPM Atrial Rate : 095 BPM P-R Int : 190 ms QRS Dur : 096 ms QT Int : 370 ms P-R-T Axes : 078 -12 061 degrees QTc Int : 464 ms Sinus rhythm with Premature atrial complexes Minimal voltage criteria for LVH, may be normal variant ( R in aVL ) Nonspecific ST and T wave abnormality Prolonged QT Abnormal ECG When compared with ECG of 27-JUL-2020 10:29, Significant changes have occurred Confirmed by Jc Aiken ([id number]) on 08/16/2022 10:48:13 AM Referred By: NO PCP Confirmed By:Jc Aiken
[2022-08-16] MEDS ORDERED: WARFARIN SOD 2 MG TAB PO SCH (16:00)
[2022-08-16] MEDS: DICLOFENAC SOD 1% GEL 100 GM TUBE EXT PRN (16:13)
--- NOTE | 2022-08-16 17:38 | Hospitalist Progress Note ---
Date of Service August 16, 2022 Assessment & Plan (1) Weakness: Plan: 82-year-old male with fairly acute onset of chills, sweats, generalized weakness as well as nausea and diarrhea. - Labs with normal WBC (but with lymphopenia), thrombocytopenia with platelets = 97 (previously normal at 184 on 02/25/2022), and mild elevation of total bilirubin. - Procal was elevated to 30 on admission. UA neg. Blood cultures showing no growth to date, follow. - Lyme neg. Anaplasma and babesia smear neg. Anaplasma DNA and basebisa DNA pending. On empiric doxy given possible tick borne illness (as suggested by lymphopenia, low platelets and elevated tbili) - RSV/COVID/FLU swab neg on admission. Given presence of diarrhea and nausea, suggested this may have been due to a viral gastroenteritis --> however since diarrhea has resolved I did not order stool PCR - similarly cdiff testing considered given recent levaquin use --> however diarrhea resolved, cdiff highly unlikley (2) Paroxysmal atrial fibrillation: Plan: Patient presently in sinus rhythm with PACs, anticoagulated on Coumadin with INR therapeutic at 2.3 Continue Coumadin Monitor INR Continue metoprolol (3) Acquired hypothyroidism: Plan: Chronic. Stable. Last TSH 02/25/2022 normal at 1.14 Continue Synthroid 100 mcg p.o. daily Continue outpatient follow-up (4) Essential hypertension: Plan: Blood pressure adequately controlled at present Continue amlodipine 7.5 mg p.o. daily Continue losartan 100 mg p.o. nightly Continue metoprolol 50 mg p.o. nightly Continue to monitor (5) CKD (chronic kidney disease) stage 3, GFR 30-59 ml/min: Plan: BUN = 25, creatinine = 1.5, at baseline Gentle IV fluids with LR at 80 mL/h x 1 L Repeat chemistry in the morning Losartan to restarted on 08/17/2019 3 PM We will resume patient's standing Lasix on 08/18/2022 (6) Hyperlipidemia: Plan: Chronic. Stable. Continue atorvastatin 40 mg p.o. nightly F/E/Nheart healthy diet as tolerated ProphylaxisSCDs to bilateral lower extremities, on coumadin Codefull per discussion with patient Dispositionobservation to medical floor. PT/OT ordered Admission and Anticipated Discharge Date Admission Date: August 15, 2022 Subjective No acute events overnight. Patient says he is beginning to feel better but is still weak. He denies any recollection of tick bite [place] He is frustrated on why there is no explanation for this illness (ie no positive tests). His diarrhea has seemed to resolve Review of Systems Review of Systems: All systems reviewed & are unremarkable except as noted in HPI & below Physical Exam Constitutional: WD/WN, vitals as above cooperative; no acute distress Eyes: + anicteric sclerae ENMT: external ear and nose normal, oropharynx normal Neck: trachea midline Respiratory: normal respiratory effort, lungs clear to auscultation Cardiovascular: RRR, no murmur, no edema Heart Sounds: normal S1 and normal S2 Gastrointestinal (Abdomen): normal bowel sounds, soft, nontender, no hepatosplenomegaly Musculoskeletal: Head/Neck/Chest: normocephalic and head atraumatic Skin: no rashes, warm and dry Neurologic: moves all extremities Psychiatric: A+Ox3, euthymic affect Results & Data Results & Data Vital Signs (Past 12 Hours) Vital Signs Temp Pulse Resp BP Pulse Ox O2 Del Method 08/16/22 15:30 36.6 C 69 20 123/71 96 Room Air 08/16/22 07:40 Room Air 08/16/22 07:38 36.3 C L 64 18 116/66 96 Room Air PG Care Time/CCT Total # of Minutes Spent Total Time Spent with Patient: Total time spent is greater than 50% in coordination of care (as documented) at patient's floor/unit and/or counseling patient: [place] [address] SUB INP/OBS CARE 2/35MIN Patient Type Established Diagnoses Weakness R53.1 Paroxysmal atrial fibrillation I48.0 Acquired hypothyroidism E03.9 Essential hypertension I10 CKD (chronic kidney disease) stage 3, GFR 30-59 ml/min N18.3 Hyperlipidemia E78.5
[2022-08-16] MEDS: LOSARTAN POTASSIUM 50 MG TAB PO SCH (19:46)
[2022-08-16] MEDS: ATORVASTATIN 40 MG TAB PO SCH (19:47)
[2022-08-16] MEDS ORDERED: METOPROLOL SUCC 50MG EXT REL TAB PO SCH (21:00)
[2022-08-17] MEDS: LEVOTHYROXINE SODIUM 100 MCG TABLET PO SCH (05:42)
[2022-08-17 07:09] LABS: Basophils # (auto) 0.03 K/uL (0-0.2); Basophils % (auto) 0.3 %; Hematocrit (blood only) 37.2 % (42.0-52.0); Hemoglobin 12.9 g/dl (14.0-18.0); Immature Granulocytes # (auto) 0.08 K/uL (0.01-0.20); Immature Granulocytes % (auto) 0.8 %; Lymphocytes # (auto) 0.89 K/uL (1.2-3.4); Lymphocytes % (auto) 8.4 %; Mean Corpuscular Hemoglobin 30.1 pg (25.0-34.0); Mean Corpuscular Hgb Conc 34.7 g/dL (32.0-36.0); Mean Corpuscular Volume 86.9 fL (80.0-100.0); Mean Platelet Volume 10.8 fL (9.4-12.4); Monocytes # (auto) 1.04 K/uL (0.11-0.59); Monocytes % (auto) 9.8 %; Neutrophils # (auto) 8.58 K/uL (1.40-6.50); Neutrophils % (auto) 80.7 %; Platelet Count 129 K/uL (130-400); RDW Coefficient of Variation 15.3 % (11.5-14.5); RDW Standard Deviation 48.3 fL (36.4-46.3); Red Blood Count 4.28 M/uL (4.70-6.10); White Blood Count 10.62 K/ul (4.8-10.8)
[2022-08-17 07:29] LABS: Albumin Globulin Ratio 1.2 (0.9-2); Albumin Level 3.2 gm/dl (3.4-5.0); BUN Creatinine Ratio 22.8 (10-20); Bilirubin,Total 0.9 mg/dl (0.2-1.0); Calcium 8.3 mg/dl (8.6-10.3); Creatinine Clr Calc Pharmacy 41.5 ml/min; Est GFR (African American) 50.3 ml/min; Est GFR (Non-African American) 43.4 ml/min; Globulin 2.7 gm/dl (2.5-4.0); INR 4.7 (0.9-1.1); Magnesium 2.2 mg/dl (1.7-2.4); Potassium 3.4 mmol/L (3.5-5.1); Prothrombin Time 47.1 Seconds (9.0-12.0); Total Protein 5.9 gm/dl (6.0-8.3)
--- NOTE | 2022-08-17 08:48 | Hospitalist Progress Note ---
Date of Service August 17, 2022 Assessment & Plan (1) Weakness: Plan: 82-year-old male with history of throat cancer, paroxysmal A-fib on Coumadin, hypertension, hyperlipidemia, CKD stage III admitted for generalized weakness and gastrointestinal complaints including nausea/vomiting/diarrhea. - Labs with normal WBC with lymphopenia, thrombocytopenia(previously normal on 02/25/2022), and mild elevation of total bilirubin; improving since admission - Procal was elevated to 30 on admission. UA neg. Blood cultures showing no growth to date - Lyme negative. Anaplasma and Babesia smear neg. Anaplasma DNA and Babesia DNA pending. Continue empiric doxy given possible tick borne illness (as suggested by lymphopenia, low platelets, elevated TBili, and now bradycardia) - RSV/COVID/Flu swab neg on admission. Given presence of diarrhea and nausea, suggested this may have been due to a viral gastroenteritis, has since resolved - C Diff testing considered given recent Levaquin use --> however given patient's diarrhea has resolved, C Diff is highly unlikely (2) Paroxysmal atrial fibrillation: Plan: Bradycardia this AM with possible Tick illness, doxycycline as described above Transfer to Med/Tele for continuous cardiac monitoring Continue home metoprolol at decreased dose 25mg daily given bradycardia this AM Bradycardia could be more so due to medication response, sick sinus as opposed to tick related illness but given improvement with rehydration and doxycycline continue the above interventions INR 4.7 this morning, will hold warfarin today with repeat INR tomorrow. (3) Acquired hypothyroidism: Plan: Chronic. Stable. Last TSH 02/25/2022 normal at 1.14 Continue Synthroid 100 mcg p.o. daily (4) Essential hypertension: Plan: Blood pressure adequately controlled at present Continue amlodipine 7.5 mg p.o. daily Continue losartan 100 mg p.o. nightly Continue metoprolol as above (5) CKD (chronic kidney disease) stage 3, GFR 30-59 ml/min: Plan: With baseline creatinine ~1.55, has been at baseline this admission Continue to monitor (6) Hyperlipidemia: Plan: Chronic. Stable Continue atorvastatin 40 mg p.o. nightly F/E/Nheart healthy diet as tolerated ProphylaxisSCDs to bilateral lower extremities, holding Coumadin for supratherapeutic INR today Codefull per discussion with patient DispositionMed/Tele, PT/OT (7) Supratherapeutic INR: Plan: Hold Coumadin as above, repeat INR tomorrow No evidence of bleeding Admission and Anticipated Discharge Date Admission Date: August 15, 2022 Subjective Patient without any acute events overnight, however did have bradycardia with a heart rate of 48 on morning vitals. Patient was asymptomatic at the time. Patient actually endorses feeling somewhat better today compared to yesterday, no palpitations, no lightheadedness, no chest pain or trouble breathing, no abdominal pain. Review of Systems Review of Systems: All systems reviewed & are unremarkable except as noted in Subjective Physical Exam Constitutional: WD/WN, vitals as above Respiratory: normal respiratory effort, lungs clear to auscultation Cardiovascular: Heart rate irregularly irregular, non-tachycardic, no murmurs, no peripheral edema Gastrointestinal (Abdomen): normal bowel sounds, soft, nontender, no hepatosplenomegaly Skin: no rashes, warm and dry Psychiatric: A+Ox3, euthymic affect Results & Data Results & Data Vital Signs (Past 12 Hours) Vital Signs Pulse Resp BP Pulse Ox O2 Del Method 08/17/22 07:30 48 L 18 108/64 96 Room Air PG Care Time/CCT Total # of Minutes Spent Total Time Spent with Patient: Total time spent is greater than 50% in coordination of care (as documented) at patient's floor/unit and/or counseling patient: Coding Level of Care Code 91829 SUB INP/OBS CARE 3/50MIN Diagnoses Weakness R53.1 Paroxysmal atrial fibrillation I48.0 Acquired hypothyroidism E03.9 Essential hypertension I10 CKD (chronic kidney disease) stage 3, GFR 30-59 ml/min N18.3 Hyperlipidemia E78.5 Supratherapeutic INR R79.1
[2022-08-17] MEDS: amLODIPine BESYLATE 5 MG TAB PO SCH (09:00)
[2022-08-17] MEDS: allopurinoL 300 MG TAB PO SCH (09:00)
[2022-08-17] MEDS: FUROSEMIDE 80 MG TAB PO SCH (09:00)
[2022-08-17] MEDS: POT PHOSPHATE MONOBASIC W/ SOD TAB PO SCH ×4 (09:00→21:39)
--- NOTE | 2022-08-17 10:42 | Electrocardiogram Report ---
Test Reason : Blood Pressure : / mmHG Vent. Rate : 063 BPM Atrial Rate : 063 BPM P-R Int : 204 ms QRS Dur : 120 ms QT Int : 410 ms P-R-T Axes : 066 -15 -37 degrees QTc Int : 419 ms Normal sinus rhythm Left ventricular hypertrophy with QRS widening Nonspecific ST and T wave abnormality Abnormal ECG When compared with ECG of 15-AUG-2022 19:12, No significant change was found Confirmed by Jc Aiken ([id number]) on 08/17/2022 10:41:52 AM Referred By: NO PCP Confirmed By:Jc Aiken
[2022-08-17] MEDS: DICLOFENAC SOD 1% GEL 100 GM TUBE EXT PRN (12:07)
[2022-08-17] MEDS ORDERED: METOPROLOL SUCC 25MG EXT REL TAB PO SCH (21:00)
[2022-08-17] MEDS: LOSARTAN POTASSIUM 50 MG TAB PO SCH (21:38)
[2022-08-17] MEDS: ATORVASTATIN 40 MG TAB PO SCH (21:39)
[2022-08-18] MEDS: LEVOTHYROXINE SODIUM 100 MCG TABLET PO SCH (05:24)
[2022-08-18 06:53] LABS: Hematocrit (blood only) 35.9 % (42.0-52.0); Hemoglobin 12.9 g/dl (14.0-18.0); Mean Corpuscular Hemoglobin 30.4 pg (25.0-34.0); Mean Corpuscular Hgb Conc 35.9 g/dL (32.0-36.0); Mean Corpuscular Volume 84.7 fL (80.0-100.0); Mean Platelet Volume 11.2 fL (9.4-12.4); Platelet Count 100 K/uL (130-400); RDW Coefficient of Variation 15.2 % (11.5-14.5); RDW Standard Deviation 46.9 fL (36.4-46.3); Red Blood Count 4.24 M/uL (4.70-6.10); White Blood Count 7.87 K/ul (4.8-10.8)
[2022-08-18 07:13] LABS: BUN Creatinine Ratio 26.2 (10-20); Calcium 7.4 mg/dl (8.6-10.3); Creatinine Clr Calc Pharmacy 43.8 ml/min; Est GFR (African American) 53.8 ml/min; Est GFR (Non-African American) 46.4 ml/min; Phosphorus 4.5 mg/dl (2.5-4.9); Potassium 3.3 mmol/L (3.5-5.1)
[2022-08-18 07:33] LABS: INR 4.2 (0.9-1.1); Prothrombin Time 42.3 Seconds (9.0-12.0)
[2022-08-18] MEDS: allopurinoL 300 MG TAB PO SCH (07:33)
[2022-08-18] MEDS: amLODIPine BESYLATE 5 MG TAB PO SCH (07:33)
[2022-08-18] MEDS: POT PHOSPHATE MONOBASIC W/ SOD TAB PO SCH (07:34)
[2022-08-18] MEDS: POTASSIUM CHLORIDE CRTAB 20 MEQ TABCR PO SCH (08:35)
[2022-08-18] MEDS ORDERED: FUROSEMIDE 40 MG TAB PO SCH (09:00)
[2022-08-18] MEDS ORDERED: METOPROLOL SUCC 25MG EXT REL TAB PO ONE (10:56)
--- NOTE | 2022-08-18 14:35 | XRay Report ---
XR chest 1V portable CLINICAL HISTORY: dyspnea TECHNIQUE: Single frontal radiograph of the chest was obtained. Comparison: Comparison is made to chest radiograph 08/15/2022 FINDINGS: A port catheter is seen. Left lower lung airspace opacity is mildly more prominent than the prior exa m. Interstitial thickening is seen. Cardiac silhouette is unremarkable. There is a moderate hiatal he rnia. Blunting of the left costophrenic angle is suggestive of a left pleural effusion. IMPRESSION: Airspace opacity in the left lower lung may represent aspiration, pneumonia, and/or atelectasis. Ther e is diffuse interstitial pulmonary disease. ACT 112: Negative or not required by law. Electronically signed by: Paulino Fine M.D. 08/18/2022 2:33 PM
--- NOTE | 2022-08-18 15:31 | Hospitalist Progress Note ---
Date of Service August 18, 2022 Assessment & Plan (1) Weakness: Plan: 82-year-old male with history of throat cancer, paroxysmal A-fib on Coumadin, hypertension, hyperlipidemia, CKD stage III admitted for generalized weakness and gastrointestinal complaints including nausea/vomiting/diarrhea. - Labs with normal WBC with lymphopenia, thrombocytopenia(previously normal on 02/25/2022), and mild elevation of total bilirubin; improving since admission - Procal was elevated to 30 on admission. UA neg. Blood cultures showing no growth to date - Lyme negative. Anaplasma and Babesia smear neg. Anaplasma DNA and Babesia DNA pending. Some concern for tick-borne illness on admission, received doxycycline 100mg IV x1 on admit but no doses since, while unlikely to be tick infection not impossible and will resume doxycycline until formal DNA PCR results for Anaplasma/Babesia are available - RSV/COVID/Flu swab neg on admission. Given presence of diarrhea and nausea, suggested this may have been due to a viral gastroenteritis, has since resolved - C Diff testing considered given recent Levaquin use --> however given patient's diarrhea has resolved, C Diff is highly unlikely (2) Paroxysmal atrial fibrillation: Plan: Bradycardia resolved, resume home dose metoprolol succinate Continue Med/Tele for continuous cardiac monitoring INR 4.2 this morning, continue to hold warfarin today with repeat INR tomorrow. (3) Acquired hypothyroidism: Plan: Chronic. Stable. Last TSH 02/25/2022 normal at 1.14 Continue Synthroid 100 mcg p.o. daily (4) Essential hypertension: Plan: Blood pressure adequately controlled at present Continue losartan 100 mg p.o. nightly Continue metoprolol as above Hold amlodipine for now given softer BP 90s-100s systolic range over last 24 hours (5) CKD (chronic kidney disease) stage 3, GFR 30-59 ml/min: Plan: With baseline creatinine ~1.55, has been at baseline this admission Continue to monitor (6) Hyperlipidemia: Plan: Chronic. Stable Continue atorvastatin 40 mg p.o. nightly F/E/Nheart healthy diet as tolerated ProphylaxisSCDs to bilateral lower extremities, holding Coumadin for suprathera peutic INR today [place] per discussion with patient DispositionMed/Tele, PT/OT (7) Supratherapeutic INR: Plan: Hold Coumadin as above, repeat INR tomorrow No evidence of bleeding Admission and Anticipated Discharge Date Admission Date: August 17, 2022 Subjective Overnight without acute events. Had a brief episode of dyspnea this morning with walking to the bathroom which resolved quickly with rest, was not hypoxic at that time. Not short of breath at time of my interview. No chest pain. Review of Systems Review of Systems: All systems reviewed & are unremarkable except as noted in Subjective Physical Exam Constitutional: WD/WN, vitals as above Respiratory: normal respiratory effort, lungs clear to auscultation Cardiovascular: Heart rate irregularly irregular, non-tachycardic, no murmurs, no peripheral edema Gastrointestinal (Abdomen): normal bowel sounds, soft, nontender, no hepatosplenomegaly Skin: no rashes, warm and dry Psychiatric: A+Ox3, euthymic affect Results & Data Results & Data Vital Signs (Past 12 Hours) Vital Signs Temp Pulse Pulse Resp BP BP Pulse Ox 08/18/22 11:27 36.3 C L 70 14 110/70 98 08/18/22 08:44 58 L 08/18/22 07:51 36.4 C L 72 16 120/70 94 08/18/22 07:42 O2 Del Method 08/18/22 11:27 Room Air 08/18/22 08:44 08/18/22 07:51 Room Air 08/18/22 07:42 Room Air PG Care Time/CCT Total # of Minutes Spent Total Time Spent with Patient: Total time spent is greater than 50% in coordination of care (as documented) at patient's floor/unit and/or counseling patient: Coding Level of Care Code 21034 SUB INP/OBS CARE 3/50MIN Diagnoses Weakness R53.1 Paroxysmal atrial fibrillation I48.0 Acquired hypothyroidism E03.9 Essential hypertension I10 CKD (chronic kidney disease) stage 3, GFR 30-59 ml/min N18.3 Hyperlipidemia E78.5 Supratherapeutic INR R79.1
[2022-08-18] MEDS: LOSARTAN POTASSIUM 50 MG TAB PO SCH (19:59)
[2022-08-18] MEDS ORDERED: METOPROLOL SUCC 50MG EXT REL TAB PO SCH (21:00)
[2022-08-18] MEDS: ATORVASTATIN 40 MG TAB PO SCH (21:02)
[2022-08-18] MEDS: DICLOFENAC SOD 1% GEL 100 GM TUBE EXT PRN (21:02)
[2022-08-18] MEDS: DOXYCYCLINE HYCLATE 100 MG CAP PO SCH (21:02)
[2022-08-19] MEDS: LEVOTHYROXINE SODIUM 100 MCG TABLET PO SCH (05:34)
[2022-08-19] MEDS ORDERED: CALCIUM GLUCONATE 10% 1,000 MG in DEXTROSE 5% 50 ML IV ONE (07:14)
[2022-08-19] MEDS ORDERED: STAT IV STA (07:14)
[2022-08-19 07:22] LABS: BUN Creatinine Ratio 21.4 (10-20); Calcium 7.5 mg/dl (8.6-10.3); Creatinine Clr Calc Pharmacy 47.3 ml/min; Est GFR (African American) 58.8 ml/min; Est GFR (Non-African American) 50.7 ml/min; Potassium 3.4 mmol/L (3.5-5.1)
[2022-08-19 07:27] LABS: INR 3.1 (0.9-1.1); Prothrombin Time 31.5 Seconds (9.0-12.0)
[2022-08-19 08:06] LABS: Hematocrit (blood only) 35.1 % (42.0-52.0); Hemoglobin 12.3 g/dl (14.0-18.0); Mean Corpuscular Volume 85.6 fL (80.0-100.0); Mean Platelet Volume 10.7 fL (9.4-12.4); Platelet Count 103 K/uL (130-400); RDW Coefficient of Variation 15.4 % (11.5-14.5); RDW Standard Deviation 48.8 fL (36.4-46.3); White Blood Count 7.48 K/ul (4.8-10.8)
[2022-08-19 08:07] LABS: Basophils # (auto) 0.04 K/uL (0-0.2); Basophils % (auto) 0.5 %; Eosinophils # (auto) 0.25 K/uL (0-0.50); Eosinophils % (auto) 3.3 %; Immature Granulocytes # (auto) 0.13 K/uL (0.01-0.20); Immature Granulocytes % (auto) 1.7 %; Lymphocytes # (auto) 1.37 K/uL (1.2-3.4); Lymphocytes % (auto) 18.3 %; Monocytes # (auto) 0.59 K/uL (0.11-0.59); Monocytes % (auto) 7.9 %; Neutrophils % (auto) 68.3 %
[2022-08-19] MEDS: allopurinoL 300 MG TAB PO SCH (08:38)
[2022-08-19] MEDS: POTASSIUM CHLORIDE CRTAB 20 MEQ TABCR PO SCH (08:39)
[2022-08-19] MEDS: DOXYCYCLINE HYCLATE 100 MG CAP PO SCH (08:39)
--- NOTE | 2022-08-19 12:04 | Discharge Summary ---
Discharge Summary Date of Service August 19, 2022 Admission HPI Per Admitting Provider Mr. Petr Hadley is an 82-year-old male with history of multiple cancers (throat, lung, thyroid and skinsurgically managed) atrial fibrillation on Coumadin anticoagulation, hypertension, hyperlipidemia, COPD presenting with 1 day of illness. Patient was seen by his primary care physician earlier today and sent to the ER. He reports waking this morning with chills and generalized weakness. He also reports body aches, chest soreness, nausea, watery/nonbloody diarrhea, cough, shortness of breath and dyspnea on exertion. Symptoms were fairly sudden in onset. He reports not sleeping last night. He denies fever but has been breaking into sweats intermittently throughout the day. He denies chest pain, palpitations, dizziness. Denies dysuria or other urinary complaints. He denies orthopnea or weight gain. Has stable unchanged lower extremity edema bilaterally. Patient had recent pneumonia and was treated with a 5-day course of Levaquin. He did report resolution of his pneumonia symptoms after completing his antibiotic. No sick contacts, recent travel or change in medications. He does not recall any tick bites [place] Patient lives at home and is independent. In the ER he is afebrile, hemodynamically stable, tachypneic with respiratory rate of 28 but adequate oxygenation on room air. Admission Exam Per Admitting Provider General: patient appears ill, NAD, AA&O x 4 Skin: warm, dry, intact, no rashes or lesions HEENT: NC/AT, PERRL, EOMI, anicteric sclera, conjunctiva without injection, external ear normal to inspection and nontender, nares patent, moist mucus membranes, dentition intact, no oropharyngeal lesions, neck supple, trachea midline, no LAD, no thyromegaly, no JVD Heart: +S1/S2, regular, no m/r/g Lungs: equal air entry bilaterally, no rales/rhonchi/wheezes Abd: +BS, soft, NT/ND, no masses/organomegaly/ascites Ext: warm, 2+ pulses in UE/LE bilaterally, no clubbing/cyanosis or edema Neuro: nonfocal, patient AA&O x 4, speech intact, no facial droop, moving all extremities on command with equal strength 5/5 Principal Dx & Hospital Course #1 = Principal Diagnosis (1) Weakness: 82-year-old male with history of throat cancer, paroxysmal A-fib on Coumadin, hypertension, hyperlipidemia, CKD stage III admitted for generalized weakness and gastrointestinal complaints including nausea/vomiting/diarrhea. - Labs with normal WBC with lymphopenia, thrombocytopenia (previously normal on 02/25/2022, but with levels as low as 132 since 2019), and mild elevation of total bilirubin; improving since admission - Procal was elevated to 30 on admission. UA neg. Blood cultures showing no growth to date - Lyme negative. Anaplasma and Babesia smear neg. Anaplasma DNA and Babesia DNA pending. Some concern for tick-borne illness on admission, given elevated procal and no other clear source of infection/thrombocytopenia, will continue doxycycline x10 days until formal DNA tick results are back - RSV/COVID/Flu swab neg on admission. Given presence of diarrhea and nausea, suggested this may have been due to a viral gastroenteritis, has since resolved - C Diff testing considered given recent Levaquin use --> however given patient's diarrhea has resolved, C Diff is highly unlikely (2) Paroxysmal atrial fibrillation: Continue home dose metoprolol succinate INR 3.1 this morning, continue to hold warfarin today and resume home dosing tomorrow with INR follow up by PCP (3) Acquired hypothyroidism: Chronic. Stable. Last TSH 02/25/2022 normal at 1.14 Continue Synthroid 100 mcg p.o. daily (4) Essential hypertension: Blood pressure adequately controlled at present, continue home medications (5) CKD (chronic kidney disease) stage 3, GFR 30-59 ml/min: With baseline creatinine ~1.55, has been at baseline this admission Continue to monitor (6) Hyperlipidemia: Chronic. Stable Continue atorvastatin 40 mg p.o. nightly Dispo: home with self care, with check ins by family members. Care discussed with patient's grandson on day of discharge (7) Supratherapeutic INR: Hold Coumadin as above until tomorrow No evidence of bleeding Discharge Exam Constitutional WD/WN, vitals as above Respiratory normal respiratory effort, lungs clear to auscultation Cardiovascular heart irregularly irregular, nontachycardiac Psychiatric A+Ox3, euthymic affect Updated Medication List Medication Instructions Recorded Confirmed Type allopurinol 300 mg tablet 300 mg PO QAM 05/31/18 08/15/22 History furosemide 80 mg tablet 40 mg PO 3XWK 05/31/18 08/15/22 History levothyroxine 100 mcg tablet 100 mcg PO QAM 05/31/18 08/15/22 History metoprolol succinate 50 mg 50 mg PO HS 05/31/18 08/15/22 History tablet,extended release 24 hr nitroglycerin 0.4 mg sublingual 0.4 mg sublingual UD 05/31/18 08/15/22 History tablet potassium chloride 20 mEq 40 meq PO DAILY 05/31/18 08/15/22 History tablet,extended release(part/cryst) warfarin 2 mg tablet 2 mg PO 5XWK 05/31/18 08/15/22 History warfarin 3 mg tablet 3 mg PO .QTUTH 05/31/18 08/15/22 History atorvastatin 40 mg tablet 40 mg PO HS 10/27/18 08/15/22 History losartan 100 mg tablet 100 mg PO HS 10/27/18 08/15/22 History albuterol sulfate 90 mcg/actuation 2 puff inhalation QID PRN 08/15/22 08/15/22 History aerosol inhaler (ProAir HFA) Shortness Of Breath Or Wheezing amlodipine 2.5 mg tablet 2.5 mg PO DAILY 08/15/22 08/15/22 History amlodipine 5 mg tablet 5 mg PO DAILY 08/15/22 08/15/22 History furosemide 80 mg tablet 80 mg PO 4XWK 08/15/22 08/15/22 History turmeric 400 mg capsule 400 mg PO BID 08/15/22 08/15/22 History calcium 600 mg-D3 800 unit-mag11 1 tab PO DAILY 30 days #30 tabs 08/19/22 Rx 50 nz-jgcg-qoxyqo-deedee-s.borat tablet (Caltrate 600-D Plus Minerals) doxycycline monohydrate 100 mg 100 mg PO BID 10 days #20 caps 08/19/22 Rx capsule ergocalciferol (vitamin D2) 1,250 50,000 unit PO .weekly 2 weeks #2 08/19/22 Rx mcg (50,000 unit) capsule (Vitamin caps D2) Hospital Stay Data Consultations 08/15/22 21:30 ED Decision to Admit Stat Discharge Instructions Given to Patient (Per Discharging Provider) You were admitted to the hospital for weakness and diarrhea. Your diarrhea did improved, and we did not feel that you had a bacterial infection of the stool. Your heart rate also improved. We feel that you were weak and dehydrated from a viral illness, which is improving. You can continue your home medications except as described below. 1. Your INR today was 3.1. This is somewhat elevated. We recommend you hold off on Coumadin today, and resume your home dose tomorrow. You should follow up your INR with Nubia Simms. 2. We considered a tick borne infection causing your symptoms. Given that your labwork started to improve without IV antibiotics, we think this is unlikely. If your labwork results with a tick infection, Dr. Espinosa will call you to talk about antibiotics. 3. Your vitamin D and calcium were low. We recommend a daily calcium/vitamin D supplement, as well as a dedicated higher dose of vitamin D (one pill weekly starting tomorrow for total of two doses) until reevaluated by your family doctor. 4. You should have follow up labwork in about a week before seeing Nubia Simms. The prescription for labwork is in your discharge paperwork. This includes electrolytes, blood counts, and INR. Total Time Total Time Spent Total Time Spent (In Minutes): 40 min Coding Level of Care Code 99853 INP/OBS DISCH >30 MIN Diagnoses Weakness R53.1 Paroxysmal atrial fibrillation I48.0 Acquired hypothyroidism E03.9 Essential hypertension I10 CKD (chronic kidney disease) stage 3, GFR 30-59 ml/min N18.3 Hyperlipidemia E78.5 Supratherapeutic INR R79.1
[2022-08-19] MEDS ORDERED: HEPARIN 100 UNIT/ML 5ML FLUSH FLUSH PRN (12:24)
[2022-08-19] MEDS ORDERED: WARFARIN SOD 3 MG TAB PO SCH (16:00)
--- NOTE | 2022-08-19 22:52 | Electrocardiogram Report ---
Test Reason : Blood Pressure : / mmHG Vent. Rate : 065 BPM Atrial Rate : 065 BPM P-R Int : 196 ms QRS Dur : 098 ms QT Int : 476 ms P-R-T Axes : 089 035 054 degrees QTc Int : 495 ms Normal sinus rhythm Nonspecific ST and T wave abnormality Prolonged QT Abnormal ECG When compared with ECG of 17-AUG-2022 09:28, Nonspecific T wave abnormality, improved in Inferior leads Nonspecific T wave abnormality, improved in Lateral leads QT has lengthened Confirmed by Eliel Metz ([id number]) on 08/19/2022 10:51:37 PM Referred By: NO PCP Confirmed By:Eliel Metz
[2022-08-20] MEDS ORDERED: CALCIUM 600MG + VIT D 400 IU TAB PO SCH (09:00)
[2022-08-20 16:07] LABS: Babesia microti DNA Not Detected (Not Detected)
== END 2022-08-19 13:12 | disposition home or self-care (01) | DRG 866 ==
LOC: 3N 17:16 → ED 17:16 → SUATTDRO 22:01 → 3N 22:32 → 2N 08-17 10:17